=== PATIENT | male | born 1960 | race Caucasian/White ===

== ENCOUNTER 2017-01-01 18:18 | Emergency (ER) | payer MEDICAID ==
[2017-01-01 20:55] VITALS: BP 113/89
[2017-01-01] MEDS ORDERED: Ibuprofen 800 MG Tab PO ONE (21:07)
[2017-01-01] MEDS ORDERED: Sodium Chloride 0.9% 1,000 ML IV SCH (21:15)
--- NOTE | 2017-01-01 23:22 | EDM.PDOC ---
ED HPI Allergic Reaction - General Chief Complaint: Allergic Reaction Stated Complaint: TEMP Time Seen by Provider: 01/01/17 19:20 Source: Reports: Patient, Family History Limitations: Reports: No limitations - History of Present Illness INITIAL COMMENTS - FREE TEXT/NARRATIVE: Medication reaction: This is a 56-year-old male presents emergency room with his and family, reports fever of up to 103 for the past 4 days. He has been taking Tylenol and Motrin. He reports started new medication Imuran 15 days ago since that time has had intermittent nausea, diarrhea and a four-day history of fever. Past medical history includes colon resection, hernia repair x2, and rheumatoid arthritis. Primary care provider Dr. Arnold at [facility] and Dr. Contreras rheumatology [facility] Timing/Duration: Reports: Day(s): (Four) Location, Skin: Reports: generalized Severity: moderate Known identified source: possible/maybe Associated symptoms: Reports: fever/chills, loss of appetite, nausea/vomiting Similar symptoms previously: no - Related Data Allergies/ADRs: Allergies Allergy/AdvReac Type Severity Reaction Status Date / Time sulfamethoxazole Allergy Cannot Verified 01/01/17 18:44 [From Bactrim] Remember trazodone Allergy Difficulty Verified 01/01/17 18:44 Breathing trimethoprim [From Bactrim] Allergy Cannot Verified 01/01/17 18:44 Remember Home Meds: Home Meds Hydrocodone/Acetaminophen [[place] 5-325] 1 tab PO Q4H PRN 06/24/13 [History] Omeprazole [Omeprazole] 20 mg PO DAILY 06/24/13 [History] RX: Losartan [Cozaar] 50 mg PO DAILY 06/24/13 [History] Spironolactone [Aldactone] 25 mg PO DAILY 01/01/17 [History] azaTHIOprine [Imuran] 100 mg PO DAILY 01/01/17 [History] riTUXimab [Rituxan] 10 mg IV ASDIRECTED 01/01/17 [History] Past Medical History Cardiovascular History: Reports: Hypertension Gastrointestinal History: Reports: GERD, Other (see below) Other Gastrointestinal History: diverticultits Genitourinary History: Reports: Renal calculus Musculoskeletal History: Reports: RA Immunologic History: Reports: Immunosuppression - Past Surgical History GI Surgical History: Reports: Colon, Hernia repair/other Social & Family History - Tobacco Use Smoking Status *Q: Never Smoker Second Hand Smoke Exposure: No - Alcohol Use Days Per Week of Alcohol Use: 0 - Recreational Drug Use Recreational Drug Use: No - Living Situation & Occupation Living situation: Reports: (Lives [place] [facility]), with family ED ROS ALLERGIC REACTION - Review of Systems Review Of Systems: See Below Constitutional: Reports: fever, chills, malaise, fatigue, decreased appetite HEENT: Reports: No symptoms Respiratory: Reports: No Symptoms Cardiovascular: Reports: No symptoms Endocrine: Reports: fatigue, high glucose GI/Abdominal: Reports: Diarrhea, Nausea : Reports: dysuria Musculoskeletal: Reports: no symptoms Skin: Reports: no symptoms Neurological: Reports: No Symptoms Psychiatric: Reports: No symptoms Hematologic/Lymphatic: Reports: no symptoms Immunologic: Reports: no symptoms ED EXAM GENERAL NO PERIP PULSE - Physical Exam Exam: See Below Exam Limited By: No limitations General Appearance: alert, WD/WN, no apparent distress Ears: normal external exam, normal canal, hearing grossly normal, normal TMs Nose: normal inspection, normal mucosa, no blood Throat/Mouth: Normal inspection, Normal lips, Normal teeth, Normal gums, Normal oropharynx, Normal voice, No airway compromise Head: atraumatic, normocephalic Neck: normal inspection, supple, non-tender, full range of motion Respiratory/Chest: no respiratory distress, lungs clear, normal breath sounds, no accessory muscle use, chest non-tender Cardiovascular: normal peripheral pulses, regular rate, rhythm, no edema, no gallop, no JVD, no murmur, no rub GI/Abdominal: normal bowel sounds, soft, non tender, no organomegaly, no distention, no abnormal bruit, no mass (Male) Exam: Deferred Rectal (Males) Exam: Deferred Back Exam: normal inspection, full range of motion, NT Extremities: normal inspection, normal range of motion, non-tender, normal capillary refill, no pedal edema Neurological: alert, oriented, CN II-XII intact, normal cognition, normal gait, normal reflexes, no motor/sensory deficits Psychiatric: normal affect, normal mood Skin Exam: Warm, Dry, Intact, Normal color, No rash Lymphatic: no adenopathy Course - Vital Signs Last Recorded V/S: Last Vital Signs Temp 98.7 C H 01/01/17 21:34 Pulse 93 01/01/17 20:55 Resp 16 01/01/17 20:55 BP 113/89 01/01/17 20:55 Pulse Ox 96 01/01/17 20:55 - Orders/Labs/Meds Orders: Active Orders 24 hr Category Date Time Status Chest 2V [CR] Urgent Exams 01/01/17 19:40 Taken Kidney Stone Protocol [CT] Stat Exams 01/01/17 21:11 Taken LYME,BY PCR [REF] Routine Lab 01/01/17 19:54 Received Labs: Laboratory Tests 01/01/17 01/01/17 01/01/17 Range/Units 19:54 19:54 19:54 WBC 7.7 (4.5-11.0) K/uL RBC 5.08 (4.30-5.90) M/uL Hgb 14.0 D (12.0-15.0) g/dL Hct 43.4 (40.0-54.0) % MCV 85 (80-98) fL MCH 28 (27-31) pg MCHC 32 (32-36) % Plt Count 248 (150-400) K/uL Neut % (Auto) 80 H (36-66) % Lymph % (Auto) 10 L (24-44) % [place] % (Auto) 7 H (2-6) % Eos % (Auto) 3 (2-4) % Baso % (Auto) 0 (0-1) % Sodium 139 L (140-148) mmol/L Potassium 3.8 (3.6-5.2) mmol/L Chloride 103 (100-108) mmol/L Carbon Dioxide 28 (21-32) mmol/L Anion Gap 11.8 (5.0-14.0) mmol/L BUN 12 (7-18) mg/dL Creatinine 1.1 (0.8-1.3) mg/dL Est Cr Clr Drug Dosing 66.86 mL/min Estimated GFR (MDRD) > 60 (>60) Glucose 215 H (74-106) mg/dL Lactic Acid (0.4-2.0) mmol/L Calcium 7.9 L D (8.5-10.1) mg/dL Total Bilirubin 0.5 D (0.2-1.0) mg/dL AST 65 H D (15-37) U/L ALT 114 H (12-78) U/L Alkaline Phosphatase 55 (46-116) U/L Total Protein 6.9 (6.4-8.2) g/dL Albumin 3.7 (3.4-5.0) g/dL Globulin 3.2 (2.3-3.5) g/dL Albumin/Globulin Ratio 1.2 (1.2-2.2) Amylase 30 (25-115) U/L Lipase 102 (73-393) U/L Urine Color Urine Appearance Urine pH (4.5-8.0) Ur Specific [place] (1.008-1.030) Urine Protein (NEGATIVE) mg/dL Urine Glucose (UA) (NEGATIVE) mg/dL Urine Ketones (NEGATIVE) mg/dL Urine Occult Blood (NEGATIVE) Urine Nitrite (NEGAITVE) Urine Bilirubin (NEGATIVE) Urine Urobilinogen (NORMAL) mg/dL Ur Leukocyte Esterase (NEGATIVE) Urine RBC (0-5) Urine WBC (0-5) Ur Epithelial Cells Amorphous Sediment Urine Bacteria Urine Mucus 01/01/17 01/01/17 Range/Units 19:54 20:15 WBC (4.5-11.0) K/uL RBC (4.30-5.90) M/uL Hgb (12.0-15.0) g/dL Hct (40.0-54.0) % MCV (80-98) fL MCH (27-31) pg MCHC (32-36) % Plt Count (150-400) K/uL Neut % (Auto) (36-66) % Lymph % (Auto) (24-44) % [place] % (Auto) (2-6) % Eos % (Auto) (2-4) % Baso % (Auto) (0-1) % Sodium (140-148) mmol/L Potassium (3.6-5.2) mmol/L Chloride (100-108) mmol/L Carbon Dioxide (21-32) mmol/L Anion Gap (5.0-14.0) mmol/L BUN (7-18) mg/dL Creatinine (0.8-1.3) mg/dL Est Cr Clr Drug Dosing mL/min Estimated GFR (MDRD) (>60) Glucose (74-106) mg/dL Lactic Acid 1.2 (0.4-2.0) mmol/L Calcium (8.5-10.1) mg/dL Total Bilirubin (0.2-1.0) mg/dL AST (15-37) U/L ALT (12-78) U/L Alkaline Phosphatase (46-116) U/L Total Protein (6.4-8.2) g/dL Albumin (3.4-5.0) g/dL Globulin (2.3-3.5) g/dL Albumin/Globulin Ratio (1.2-2.2) Amylase (25-115) U/L Lipase (73-393) U/L Urine Color Yellow Urine Appearance Slightly cloudy Urine pH 6.0 (4.5-8.0) Ur Specific [place] 1.015 (1.008-1.030) Urine Protein Negative (NEGATIVE) mg/dL Urine Glucose (UA) Normal (NEGATIVE) mg/dL Urine Ketones Negative (NEGATIVE) mg/dL Urine Occult Blood Large (NEGATIVE) Urine Nitrite Negative (NEGAITVE) Urine Bilirubin Negative (NEGATIVE) Urine Urobilinogen Normal (NORMAL) mg/dL Ur Leukocyte Esterase Negative (NEGATIVE) Urine RBC 0-5 (0-5) Urine WBC Not seen (0-5) Ur Epithelial Cells Not seen Amorphous Sediment Rare Urine Bacteria Not seen Urine Mucus Not seen Meds: Medications Discontinued Medications Generic Name Dose Route Start Last Admin Trade Name Freq PRN Reason Stop Dose Admin Sodium Chloride 1,000 mls @ 500 mls/hr 01/01/17 21:15 01/01/17 21:35 Normal Saline IV 500 mls/hr ASDIRECTED KATHERINE Administration Ibuprofen 800 mg 01/01/17 21:07 01/01/17 21:34 Motrin PO 01/01/17 21:08 800 mg ONETIME ONE Administration - Re-Assessments/Exams Free Text/Narrative Re-Assessment/Exam: CT scan of abdomen and pelvis without oral IV contrast Impression -A few very small bilateral renal calculi -Posttreatment changes of anterior and, normal and pelvic wall hernia repair with diffuse mesh was 3.3 cm recurrent hernia in the lower anterior abdomen and upper anterior pelvic wall containing fat and a nondilated small bowel loop. -Diffuse fatty infiltration of liver -Postsurgical changes sigmoid colon Patient and reviewed report, given copy of CT and written report. 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 -Return to urgent care or ER if has increased pain, fever, chills, nausea, vomiting, rash or not improved Bilateral kidney stones -Push fluids -Calcium citrate 1000 mg by mouth daily -Followup with urology for further evaluation and recommendations of care -Return to emergency room for any increased pain, fever, chills painful urination or any concerns Recurrent hernia -Advised to followup with primary care for referral to surgeon -Return to emergency room for any abdominal pain, nausea, vomiting, rash or any concerns Fatty infiltration of liver -Followup with primary care for recommendations for further care - Problem List & Annotations (1) Adverse reaction to drug SNOMED Code(s): 52862061 Code(s): T88.7XXA - UNSP ADVERSE EFFECT OF DRUG OR MEDICAMENT, INIT ENCNTR Status: Acute Priority: High (2) Bilateral kidney stones SNOMED Code(s): 53366316 Code(s): N20.0 - CALCULUS OF KIDNEY Status: Acute Priority: High (3) Fatty infiltration of liver SNOMED Code(s): 343252991 Code(s): K76.0 - FATTY (CHANGE OF) LIVER, NOT ELSEWHERE CLASSIFIED Status: Acute Priority: Medium (4) Recurrent hernia SNOMED Code(s): 10887579, 051525557, 853400897 Code(s): K46.9 - UNSPECIFIED ABDOMINAL HERNIA WITHOUT OBSTRUCTION OR GANGRENE Status: Acute Priority: High - Problem List Review Problem List Initiated/Reviewed/Updated: Yes - My Orders Last 24 Hours: My Active Orders 01/01/17 19:40 Chest 2V [CR] Urgent 01/01/17 19:54 LYME,BY PCR [REF] Routine 01/01/17 21:11 Kidney Stone Protocol [CT] Stat - Assessment/Plan Last 24 Hours: My Active Orders 01/01/17 19:40 Chest 2V [CR] Urgent 01/01/17 19:54 LYME,BY PCR [REF] Routine 01/01/17 21:11 Kidney Stone Protocol [CT] Stat Plan: Adverse reaction to drug -Advised to stop Imuran immediately -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 -Return to urgent care or ER if has increased pain, fever, chills, nausea, vomiting, rash or not improved Bilateral kidney stones -Push fluids -Calcium citrate 1000 mg by mouth daily -Followup with urology for further evaluation and recommendations of care -Return to emergency room for any increased pain, fever, chills painful urination or any concerns Recurrent hernia -Advised to followup with primary care for referral to surgeon -Return to emergency room for any abdominal pain, nausea, vomiting, rash or any concerns Fatty infiltration of liver -Followup with primary care for recommendations for further care
--- NOTE | 2017-01-03 09:08 | CR ---
Chest 2V HISTORY: Fever FINDINGS: The heart and vascular structures are normal in appearance. No infiltrates or effusions ar e demonstrated. The skeletal structures are unremarkable. IMPRESSION: Negative exam.
== END 2017-01-01 23:33 | disposition home or self-care (01) ==
LOC: JP.ED 18:18
DX: R11.2 Nausea with vomiting, unspecified (principal); R19.7 Diarrhea, unspecified; T45.1X5A Adverse effect of antineoplastic and immunosuppressive drugs, initial encounter; K46.9 Unspecified abdominal hernia without obstruction or gangrene; K76.0 Fatty (change of) liver, not elsewhere classified; N20.0 Calculus of kidney; I10 Essential (primary) hypertension; K21.9 Gastro-esophageal reflux disease without esophagitis; M06.9 Rheumatoid arthritis, unspecified; Z79.899 Other long term (current) drug therapy; Z88.8 Allergy status to other drugs, medicaments and biological substances
CPT/HCPCS: 36415; 71020; 74176; 80053; 81001; 82150; 83605; 83690; 85025; 87476; 96360; 96361; 99284; A9270; J7040

== ENCOUNTER 2019-01-05 06:12 | Day surgery (SDC) | payer MEDICAID ==
[~2019-01-05 06:12] MED LIST: Dextrose 5%-Lactated Ringers 1,000 ML IV SCH
[2019-01-05] MEDS ORDERED: Propofol 200 MG/20 ML SDV ONE (06:50)
[2019-01-05] MEDS ORDERED: fentaNYL 100 MCG/2 ML SDV ONE (06:50)
[2019-01-05] MEDS ORDERED: Midazolam 1 MG/ML 2 ML SDV ONE (06:50)
[2019-01-05 08:31] VITALS: BP 153/90
--- NOTE | 2019-01-07 17:16 | OR ---
DATE OF PROCEDURE: 01/05/2019 PREOPERATIVE DIAGNOSIS: Indications for screening colonoscopy. POSTOPERATIVE DIAGNOSIS: Uncomplicated left colonic diverticulosis. OPERATIVE PROCEDURE: Flexible colonoscopy. ANESTHESIA: IV sedation. INDICATION FOR PROCEDURE: This is a 58-year-old presenting for a screening colonoscopy. The plan is to proceed with colonoscopy with polypectomy and/or biopsies as indicated. Potential risks of the procedure including bleeding and perforation were discussed, and the patient wishes to proceed. DETAILS OF PROCEDURE: The patient was taken to the operating room and placed in a left lateral decubitus position. IV sedation was administered, after which the initial digital rectal exam was performed and was unremarkable. Colonoscope was then passed into the rectum with retroflexion revealing uncomplicated hemorrhoidal columns. The scope was eventually passed to the cecum. The patient is status post sigmoid colon resection for diverticular disease previously. The area of the anastomosis was identified. The patient did have somewhat uncomplicated diverticulosis above that anastomosis and the remaining descending colon. Otherwise, there were no polyps or other signs of neoplasia and no areas of colitis. The scope was then withdrawn, the above findings were reconfirmed, and the procedure was then concluded. There were no evident complications. The patient was taken to the recovery room in satisfactory condition. The recommendations would be to repeat the colonoscopy in 10 years unless signs or symptoms indicate need for earlier exam. Sagar Jackson MD /[id number]
== END 2019-01-05 08:40 | disposition home or self-care (01) ==
LOC: JP.SDS 06:12
PROVIDERS: ATTEND Surgery
DX: Z12.11 Encounter for screening for malignant neoplasm of colon (principal); K57.30 Diverticulosis of large intestine without perforation or abscess without bleeding; K64.9 Unspecified hemorrhoids; K21.9 Gastro-esophageal reflux disease without esophagitis; I10 Essential (primary) hypertension; E11.9 Type 2 diabetes mellitus without complications; E87.6 Hypokalemia; Z90.49 Acquired absence of other specified parts of digestive tract
CPT/HCPCS: J2250; J2704; J3010; J7042

== ENCOUNTER 2021-04-22 19:46 | Inpatient (IN) | payer MEDICAID ==
[2021-04-22] MEDS ORDERED: HYDROmorphone 1 MG/ML Syringe IM ONE (20:28)
[2021-04-22] MEDS ORDERED: Ondansetron 4 MG/2 ML SDV IVPUSH ONE (20:29)
[2021-04-22] MEDS ORDERED: Sodium Chloride 0.9% 1,000 ML IV SCH (20:30)
[2021-04-22] MEDS ORDERED: HYDROmorphone 1 MG/ML Syringe ONE (20:30)
--- NOTE | 2021-04-22 21:09 | CRLCT ---
For Patients: As a result of the Century Cures Act, medical imaging exams and procedure reports are released immediately into your electronic medical record. You may view this report before your referring provider. If you have questions, please contact your health care provider. INDICATION: Pain at umbilical hernia TECHNIQUE: CT abdomen and pelvis without contrast. COMPARISON: None FINDINGS: Lower chest: Unremarkable. Liver: Unremarkable. Spleen: Unremarkable. Pancreas: Unremarkable. Gallbladder and bile ducts: Unremarkable. Adrenal glands: Unremarkable. Kidneys: Bilateral nonobstructive nephrolithiasis. GI tract: Status post ventral hernia with recurrent umbilical hernia. The hernia sac contains a loop of small bowel and a small amount of fluid. No bowel wall thickening or pneumatosis within the bowel loop in the hernia sac. The neck of the hernia measures 4.1 cm. There is proximal small bowel dilatation measuring up to 3.9 cm. Bowel distal to the hernia sac is decompressed. Surgical suture at the mid sigmoid colon. Colonic diverticulosis. Vascular structures: Unremarkable. Lymph nodes: Unremarkable. Miscellaneous: Unremarkable. No free air or significant free fluid. Pelvic Organs: Unremarkable. Bones: Mixed density 1.7 x 1.7 cm lesion in the left sacrum. 5 mm round sclerotic density in the right ilium. IMPRESSION: Small-bowel obstruction secondary to incarcerated loop of small bowel in a recurrent umbilical hernia. No CT evidence for bowel wall thickening, pneumatosis, or free air. Mixed density lesion in the left sacrum and tiny sclerotic density in the right ilium. Recommend comparison with prior CT images. Colonic diverticulosis. Bilateral nonobstructive nephrolithiasis. S/p sigmoid colon surgery. Please note that all CT scans at this facility use dose modulation, iterative reconstruction, and/or weight-based dosing when appropriate to reduce radiation dose to as low as reasonably achievable. Dictated by Ila Jorgensen MD @ 04/22/2021 9:07:[address] Ila Jorgensen @ Apr 22 2021 9:07PM
[2021-04-22] MEDS ORDERED: LORazepam 2 MG/ML SDV IVPUSH ONE (21:27)
[2021-04-22] MEDS ORDERED: Ondansetron 4 MG/2 ML SDV IVPUSH PRN (21:28)
[2021-04-22] MEDS ORDERED: HYDROmorphone 1 MG/ML Syringe IVPUSH PRN (21:28)
[2021-04-22] MEDS ORDERED: Lactated Ringers 1,000 ML IV SCH (21:30)
[2021-04-22] MEDS: Meropenem 500 MG in Sodium Chloride 0.9% 50 ML IV SCH (22:16)
--- NOTE | 2021-04-22 23:16 | EDM.PDOC ---
ED HPI GENERAL MEDICAL PROBLEM - General Chief Complaint: Abdominal Pain Stated Complaint: HERNIA Time Seen by Provider: 04/22/21 20:29 Source of Information: Reports: Patient, Family (), RN History Limitations: Reports: No Limitations - History of Present Illness INITIAL COMMENTS - FREE TEXT/NARRATIVE: chief complaint: hernia- acute abdominal pain This is a 60 year old male presents to the ER with Ila with acute abdominal pain. reports has had a umbilical hernia for 5 years and has always been able to self reduce it. This morning woke up in pain, was able to do his day work but pain persisted, this evening at 530pm tried to eat prime rib, veggies and 2 beers, then he had unbearable pain. nausea, vomiting, fever, chills, and sweats from the pain. Surgical: reports Hernia surgery x2 with mesh, colon resection for diverticulitis Surgeon: Dr. Jackson Onset: Sudden Onset Date: 04/22/21 Onset Time: 08:00 Duration: Getting Worse (1730 unbearable abdominal pain) Location: Reports: Abdomen (acute, umbilical hernia) Quality: Reports: Sharp, Stabbing, Throbbing Severity: Severe (rates pain 10/10) Improves with: Reports: None Worsens with: Reports: None Associated Symptoms: Reports: Fever/Chills, Loss of Appetite, Nausea/Vomiting, Weakness abd Pain Score (Numeric/FACES): 5 - Related Data Allergies Allergy/AdvReac Type Severity Reaction Status Date / Time sulfamethoxazole Allergy Cannot Verified 04/22/21 20:00 [From Bactrim] Remember trazodone Allergy Difficulty Verified 04/22/21 20:00 Breathing trimethoprim [From Bactrim] Allergy Cannot Verified 04/22/21 20:00 Remember Home Meds: Home Meds Losartan [Cozaar] 50 mg PO DAILY 06/24/13 [History] Omeprazole 20 mg PO BEDTIME 06/24/13 [History] Spironolactone [Aldactone] 25 mg PO DAILY 01/01/17 [History] Tofacitinib Citrate [Xeljanz] 5 mg PO BID 01/05/19 [History] Melatonin 5 mg PO BEDTIME 04/22/21 [History] Past Medical History HEENT History: Reports: None Cardiovascular History: Reports: Heart Murmur, Hypertension Respiratory History: Reports: Sleep Apnea Gastrointestinal History: Reports: GERD, Other (See Below) Other Gastrointestinal History: diverticultits Genitourinary History: Reports: Renal Calculus Musculoskeletal History: Reports: RA Neurological History: Reports: MS Endocrine/Metabolic History: Reports: Diabetes, Type II Immunologic History: Reports: Immunosuppression Dermatologic History: Reports: Other (See Below) Other Dermatologic History: roseatia - Infectious Disease History Infectious Disease History: Reports: C-Difficile, Chicken Pox - Past Surgical History Head Surgeries/Procedures: Reports: None HEENT Surgical History: Reports: Other (See Below) Other HEENT Surgeries/Procedures: 2 cornea transplants Cardiovascular Surgical History: Reports: None GI Surgical History: Reports: Colon, Colonoscopy, EGD, Hernia Repair/Other, Other (See Below) Other GI Surgeries/Procedures: colon resection Male Surgical History: Reports: Lithotripsy ([facility]) Endocrine Surgical History: Reports: None Neurological Surgical History: Reports: None Musculoskeletal Surgical History: Reports: None Social & Family History - Family History Family Medical History: No Pertinent Family History - Tobacco Use Tobacco Use Status *Q: Never Tobacco User - Caffeine Use Caffeine Use: Reports: Energy Drinks, Soda, Tea - Recreational Drug Use Recreational Drug Use: No - Living Situation & Occupation Living situation: Reports: , with Family (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[employer] [place], lives with Ila and 2 children age 18 yrs and 16 yrs.) ED ROS GENERAL - Review of Systems Review Of Systems: See Below Constitutional: Reports: Fever, Chills, Malaise, Weakness, Decreased Appetite, Other (acute abdominal pain) HEENT: Reports: No Symptoms, Glasses, Other (natural teeth.) Respiratory: Reports: No Symptoms Cardiovascular: Reports: No Symptoms Endocrine: Reports: Other (diabetes type 2- diet controlled) GI/Abdominal: Reports: Abdominal Pain, Decreased Appetite, Distension, Nausea, Vomiting : Reports: Other (report history of kidney stones) Musculoskeletal: Reports: Back Pain Skin: Reports: No Symptoms Neurological: Reports: No Symptoms Psychiatric: Reports: No Symptoms Hematologic/Lymphatic: Reports: No Symptoms Immunologic: Reports: No Symptoms ED EXAM, GI/ABD - Physical Exam Exam: See Below Exam Limited By: Other (acute pain, Mr. Leon is curled up in position, diaphorectic, pallor, moaning) General Appearance: Alert, Severe Distress, Obese Eyes: Bilateral: Normal Appearance Ears: Normal External Exam, Normal Canal, Hearing Grossly Normal, Normal TMs Nose: Normal Inspection, Normal Mucosa, No Blood Throat/Mouth: Normal Inspection, Normal Lips, Normal Teeth, Normal Gums, Normal Oropharynx, Normal Voice, No Airway Compromise Head: Atraumatic, Normocephalic Neck: Normal Inspection, Supple, Non-Tender, Full Range of Motion Respiratory/Chest: No Respiratory Distress, Lungs Clear, Normal Breath Sounds, No Accessory Muscle Use, Chest Non-Tender Cardiovascular: Normal Peripheral Pulses, Regular Rate, Rhythm, No Edema, No Gallop, No JVD, No Murmur, No Rub GI/Abdominal Exam: Distended, Guarding, Rigid, Abnormal Bowel Sounds (no bowel sounds noted), Other (umbilical hernia noted, abdomen is bulging, hard, extreme pain to light tough, pink in color) (Male) Exam: Deferred Rectal (Males) Exam: Deferred Back Exam: Normal Inspection, Full Range of Motion Extremities: Normal Inspection, Normal Range of Motion, Non-Tender, Normal Capillary Refill, No Pedal Edema Neurological: Alert, Oriented, CN II-XII Intact, Normal Cognition, Normal Gait, Normal Reflexes, No Motor/Sensory Deficits Psychiatric: Normal Affect, Normal Mood Skin Exam: Warm, Dry, Intact, No Rash, Pallor Lymphatic: No Adenopathy Course - Vital Signs Last Recorded V/S: Last Vital Signs Temp 97.2 F 04/22/21 19:58 Pulse 74 04/22/21 22:35 Resp 20 04/22/21 20:10 BP 127/77 04/22/21 22:35 Pulse Ox 95 04/22/21 22:35 - Orders/Labs/Meds Orders: Active Orders 24 hr Category Date Time Status Vital Signs [RC] Q1H Care 04/22/21 20:25 Active CULTURE BLOOD [BC] Urgent Lab 04/22/21 20:45 Received CULTURE BLOOD [BC] Urgent Lab 04/22/21 20:50 Received UA W/MICROSCOPIC [URIN] Urgent Lab 04/22/21 20:24 Ordered Sodium Chloride 0.9% [Normal Saline] 1,000 ml Med 04/22/21 20:30 Active IV ASDIRECTED Blood Culture x2 Reflex Set [OM.PC] Urgent Oth 04/22/21 20:25 Ordered Medication Orders Hydromorphone HCl (Hydromorphone 1 Mg/Ml Syringe) 1 mg IVPUSH Q2H PRN PRN Reason: Pain Sodium Chloride (Normal Saline) 1,000 mls @ 999 mls/hr IV ASDIRECTED [facility] Last Admin: 04/22/21 20:37 Dose: 999 mls/hr Documented by: MAR Lactated Ringer's (Ringers, Lactated) 1,000 mls @ 125 mls/hr IV ASDIRECTED [facility] Last Admin: 04/22/21 22:01 Dose: 125 mls/hr Documented by: MAR Meropenem 500 mg/ Sodium (Chloride) 50 mls @ 100 mls/hr IV Q8H KATHERINE Last Admin: 04/22/21 22:16 Dose: 100 mls/hr Documented by: MAR Losartan Potassium (Losartan 50 Mg Tab) 50 mg PO DAILY KATHERINE Non-Formulary Medication (Melatonin [Melatonin]) 5 mg PO BEDTIME KATHERINE Non-Formulary Medication (Tofacitinib Citrate [Xeljanz]) 5 mg PO BID KATHERINE Ondansetron HCl (Ondansetron 4 Mg/2 Ml Sdv) 4 mg IVPUSH Q4H PRN PRN Reason: Nausea/Vomiting Pantoprazole Sodium (Pantoprazole 40 Mg Tab.Cr) 40 mg PO BEDTIME KATHERINE Spironolactone (Spironolactone 25 Mg Tab) 25 mg PO DAILY [facility] Labs: Laboratory Tests 04/22/21 04/22/21 04/22/21 Range/Units 20:45 20:45 20:45 WBC 11.6 H (4.5-11.0) K/uL RBC 5.33 (4.30-5.90) M/uL Hgb 15.0 (12.0-15.0) g/dL Hct 45.0 (40.0-54.0) % MCV 84 (80-98) fL MCH 28 (27-31) pg MCHC 33 (32-36) % Plt Count 351 (150-400) K/uL Neut % (Auto) 78.8 H (36-66) % Lymph % (Auto) 12.6 L (24-44) % [place] % (Auto) 7.3 H (2-6) % Eos % (Auto) 1.0 L (2-4) % Baso % (Auto) 0.3 (0-1) % Sodium 142 (140-148) mmol/L Potassium 3.8 (3.6-5.2) mmol/L Chloride 100 (100-108) mmol/L Carbon Dioxide 26 (21-32) mmol/L Anion Gap 15.6 H (5.0-14.0) mmol/L BUN 20 H D (7-18) mg/dL Creatinine 1.0 (0.8-1.3) mg/dL Est Cr Clr Drug Dosing 72.53 mL/min Estimated GFR (MDRD) > 60 (>60) Glucose 154 H (74-106) mg/dL Lactic Acid 1.4 (0.4-2.0) mmol/L Calcium 9.5 D (8.5-10.1) mg/dL Total Bilirubin 0.6 (0.2-1.0) mg/dL AST 21 (15-37) U/L ALT 50 (12-78) U/L Alkaline Phosphatase 56 (46-116) U/L C-Reactive Protein < 0.05 (0.0-0.3) mg/dL Total Protein 7.6 (6.4-8.2) g/dL Albumin 4.7 (3.4-5.0) g/dL Globulin 2.9 (2.3-3.5) g/dL Albumin/Globulin Ratio 1.6 (1.2-2.2) Meds: Medications Generic Name Dose Route Start Last Admin Trade Name Freq PRN Reason Stop Dose Admin Hydromorphone HCl 1 mg 04/22/21 21:28 Hydromorphone 1 Mg/Ml Syringe IVPUSH Q2H PRN Pain Sodium Chloride 1,000 mls @ 999 mls/hr 04/22/21 20:30 04/22/21 20:37 Normal Saline IV 999 mls/hr ASDIRECTED KATHERINE Administration Lactated Ringer's 1,000 mls @ 125 mls/hr 04/22/21 21:30 04/22/21 22:01 Ringers, Lactated IV 125 mls/hr ASDIRECTED KATHERINE Administration Meropenem 500 mg/ Sodium 50 mls @ 100 mls/hr 04/22/21 21:30 04/22/21 22:16 Chloride IV 100 mls/hr Q8H KATHERINE Administration Losartan Potassium 50 mg 04/23/21 09:00 Losartan 50 Mg Tab PO DAILY KATHERINE Non-Formulary Medication 5 mg 04/23/21 21:00 Melatonin [Melatonin] PO BEDTIME KATHERINE Non-Formulary Medication 5 mg 04/23/21 09:00 Tofacitinib Citrate [Xeljanz] PO BID KATHERINE Ondansetron HCl 4 mg 04/22/21 21:28 Ondansetron 4 Mg/2 Ml Sdv IVPUSH Q4H PRN Nausea/Vomiting Pantoprazole Sodium 40 mg 04/23/21 21:00 Pantoprazole 40 Mg Tab.Cr PO BEDTIME KATHERINE Spironolactone 25 mg 04/23/21 09:00 Spironolactone 25 Mg Tab PO DAILY KATHERINE Discontinued Medications Generic Name Dose Route Start Last Admin Trade Name Freq PRN Reason Stop Dose Admin Hydromorphone HCl 1 mg 04/22/21 20:28 04/22/21 20:34 Hydromorphone 1 Mg/Ml Syringe IM 04/22/21 20:29 1 mg ONETIME ONE Administration Hydromorphone HCl Confirm 04/22/21 20:30 04/22/21 20:34 Hydromorphone 1 Mg/Ml Syringe Administered 04/22/21 20:31 Not Given Dose 1 mg .ROUTE .STK-MED ONE Lorazepam 1 mg 04/22/21 21:27 04/22/21 21:38 Lorazepam 2 Mg/Ml Sdv IVPUSH 04/22/21 21:28 1 mg ONETIME ONE Administration Ondansetron HCl 4 mg 04/22/21 20:29 04/22/21 20:38 Ondansetron 4 Mg/2 Ml Sdv IVPUSH 04/22/21 20:30 4 mg ONETIME ONE Administration - Re-Assessments/Exams Free Text/Narrative Re-Assessment/Exam: 04/22/21 20:26 CT scan of abdomen-pelvis without contrast IV fluids medicate for pain and nausea labs to rule out sepsis will consult with Surgery net developer contract Mr. and Mrs. Leon agree with plan of care. 2106 CT report Abdomen-pelvis Impression- -small-bowel obstruction secondary to incarcerated loop of small bowel in recurrent umbilical hernia. no CT evidence for bowel wall thickening, pneumatosis or free air. -mixed density lesion in the left sacrum and tiny sclerotic density in the right ilium . recommend comparison with prior ct images. -colonic diverticulosis -bilateral nonobstructive nephrolithiasis -s/p sigmoid colon surgery consult with Dr. Sagar Jackson, Surgeon, [facility], admission and orders for care given to ER Medical Doctor -will admit, orders given for care, surgery in am -reviewed CT report and plan of care with and Mrs. Leon agree with plan of care Departure - Departure Time of Disposition: 23:38 Disposition: Admitted As Inpatient 65 Condition: Good Clinical Impression: Small bowel obstruction, Umbilical hernia, incarcerated - Discharge Information *PRESCRIPTION DRUG MONITORING PROGRAM REVIEWED*: Not Applicable *COPY OF PRESCRIPTION DRUG MONITORING REPORT IN PATIENT STEPHANIE: Not Applicable Sepsis Event Note (ED) - Focused Exam Vital Signs: Vital Signs Temp Pulse Resp BP Pulse Ox 04/22/21 20:25 69 194/89 H 97 04/22/21 20:10 66 20 183/87 H 100 04/22/21 19:58 97.2 F 74 18 183/87 H 97 - Problem List & Annotations (1) Umbilical hernia, incarcerated SNOMED Code(s): 916638530 Code(s): K42.0 - UMBILICAL HERNIA WITH OBSTRUCTION, WITHOUT GANGRENE Status: Acute Priority: High Current Visit: Yes (2) Small bowel obstruction SNOMED Code(s): 665293464 Code(s): K56.609 - UNSP INTESTNL OBST, UNSP TO PARTIAL VERSUS COMPLETE OBST Status: Acute Priority: High Current Visit: Yes - Problem List Review Problem List Initiated/Reviewed/Updated: Yes - My Orders Last 24 Hours: My Active Orders 04/22/21 20:24 UA W/MICROSCOPIC [URIN] Urgent 04/22/21 20:25 Vital Signs [RC] Q1H Blood Culture x2 Reflex Set [OM.PC] Urgent 04/22/21 20:30 Sodium Chloride 0.9% [Normal Saline] 1,000 ml IV ASDIRECTED 04/22/21 20:45 CULTURE BLOOD [BC] Urgent 04/22/21 20:50 CULTURE BLOOD [BC] Urgent - Assessment/Plan Last 24 Hours: My Active Orders 04/22/21 20:24 UA W/MICROSCOPIC [URIN] Urgent 04/22/21 20:25 Vital Signs [RC] Q1H Blood Culture x2 Reflex Set [OM.PC] Urgent 04/22/21 20:30 Sodium Chloride 0.9% [Normal Saline] 1,000 ml IV ASDIRECTED 04/22/21 20:45 CULTURE BLOOD [BC] Urgent 04/22/21 20:50 CULTURE BLOOD [BC] Urgent Plan: admit to Surgery Service
[2021-04-22] MEDS ORDERED: Melatonin 3 MG Tab PO SCH (23:35)
[2021-04-23 03:54] VITALS: PULSE 79
[2021-04-23] MEDS: Meropenem 500 MG in Sodium Chloride 0.9% 50 ML IV SCH (05:53)
--- NOTE | 2021-04-23 08:09 | PCM.DCSUM1 ---
Discharge Summary - Hospital Course Free Text/Narrative:: Vini has had an icisional umbilical hernia for several years and yesterday it became incarcerated and he was not able to reduce it. Due to increase pain he presented to the ED and was admitted. After his CT Scan the hernia reduced itself and he is feeling better today. - Discharge Data Discharge Date: 04/23/21 Discharge Disposition: Home, Self-Care 01 Condition: Good - Referral to Home Health Primary Care Physician: PCP None - Patient Summary/Data Planned Operative Procedure(s) after DC: Scheduled: Open Repair of Incisional Umbilical Hernia with Mesh - General Anesthesia - 05/05/2021 -. Sagar Jackson MD. NPO after MN - Patient Instructions Diet, Other: Full liquid diet for 5 days then gradually progress diet as tolerated Activity: As Tolerated, No Lifting Over 10 Pounds Driving: May Drive Today Showering/Bathing: May Shower Notify Provider of: Fever, Increased Pain, Nausea and/or Vomiting Other/Special Instructions: Scheduled for Surgery on 05/05/2021. Pre Op Physical will be required by your primary care doctor. If any increase in pain or you can't reduce hernia call [facility] at [phone] or the hospital after clinic hours and ask to speak to Dr. Jackson or Amanda - Discharge Plan *PRESCRIPTION DRUG MONITORING PROGRAM REVIEWED*: Not Applicable *COPY OF PRESCRIPTION DRUG MONITORING REPORT IN PATIENT STEPHANIE: Not Applicable Home Medications: Home Meds Losartan [Cozaar] 50 mg PO DAILY 06/24/13 [History] Omeprazole 20 mg PO BEDTIME 06/24/13 [History] Spironolactone [Aldactone] 25 mg PO DAILY 01/01/17 [History] Tofacitinib Citrate [Xeljanz] 5 mg PO BID 01/05/19 [History] Melatonin 5 mg PO BEDTIME 04/22/21 [History] - Discharge Summary/Plan Comment DC Time >30 min.: No Total # of Minutes for Discharge Time: 20 minutes Discharge Summary/Plan Comment: Plan: To follow up prn or for surgery. - General Info Date of Service: 04/23/21 Functional Status: Reports: Tolerating Diet, Ambulating - Review of Systems General: Reports: No Symptoms HEENT: Reports: No Symptoms Pulmonary: Reports: No Symptoms Cardiovascular: Reports: No Symptoms Gastrointestinal: Reports: No Symptoms Genitourinary: Reports: No Symptoms Musculoskeletal: Reports: No Symptoms Skin: Reports: No Symptoms Neurological: Reports: No Symptoms Psychiatric: Reports: No Symptoms - Patient Data Vitals - Most Recent: Last Vital Signs Temp 98.9 F 04/23/21 03:53 Pulse 79 04/23/21 03:53 Resp 16 04/23/21 03:53 BP 135/69 04/23/21 03:53 Pulse Ox 92 L 04/23/21 03:53 Weight - Most Recent: 240 lb 8.389 oz I&O - Last 24 hours: Intake & Output 04/22/21 04/23/21 04/23/21 22:59 06:59 14:59 Intake Total 854 Output Total 700 Balance 154 Lab Results - Last 24 hrs: Laboratory Results - last 24 hr 04/22/21 04/22/21 04/22/21 Range/Units 20:45 20:45 20:45 WBC 11.6 H (4.5-11.0) K/uL RBC 5.33 (4.30-5.90) M/uL Hgb 15.0 (12.0-15.0) g/dL Hct 45.0 (40.0-54.0) % MCV 84 (80-98) fL MCH 28 (27-31) pg MCHC 33 (32-36) % Plt Count 351 (150-400) K/uL Neut % (Auto) 78.8 H (36-66) % Lymph % (Auto) 12.6 L (24-44) % [place] % (Auto) 7.3 H (2-6) % Eos % (Auto) 1.0 L (2-4) % Baso % (Auto) 0.3 (0-1) % Sodium 142 (140-148) mmol/L Potassium 3.8 (3.6-5.2) mmol/L Chloride 100 (100-108) mmol/L Carbon Dioxide 26 (21-32) mmol/L Anion Gap 15.6 H (5.0-14.0) mmol/L BUN 20 H D (7-18) mg/dL Creatinine 1.0 (0.8-1.3) mg/dL Est Cr Clr Drug Dosing 72.53 mL/min Estimated GFR (MDRD) > 60 (>60) Glucose 154 H (74-106) mg/dL Lactic Acid 1.4 (0.4-2.0) mmol/L Calcium 9.5 D (8.5-10.1) mg/dL Total Bilirubin 0.6 (0.2-1.0) mg/dL AST 21 (15-37) U/L ALT 50 (12-78) U/L Alkaline Phosphatase 56 (46-116) U/L C-Reactive Protein < 0.05 (0.0-0.3) mg/dL Total Protein 7.6 (6.4-8.2) g/dL Albumin 4.7 (3.4-5.0) g/dL Globulin 2.9 (2.3-3.5) g/dL Albumin/Globulin Ratio 1.6 (1.2-2.2) Urine Color (YELLOW) Urine Appearance (CLEAR) Urine pH (5.0-8.0) Ur Specific [place] (1.008-1.030) Urine Protein (NEGATIVE) mg/dL Urine Glucose (UA) (NEGATIVE) mg/dL Urine Ketones (NEGATIVE) mg/dL Urine Occult Blood (NEGATIVE) Urine Nitrite (NEGATIVE) Urine Bilirubin (NEGATIVE) Urine Urobilinogen (0.2-1.0) EU/dL Ur Leukocyte Esterase (NEGATIVE) Urine RBC (0-5) Urine WBC (0-5) Ur Epithelial Cells Amorphous Sediment Urine Bacteria Urine Mucus 04/23/21 Range/Units 00:53 WBC (4.5-11.0) K/uL RBC (4.30-5.90) M/uL Hgb (12.0-15.0) g/dL Hct (40.0-54.0) % MCV (80-98) fL MCH (27-31) pg MCHC (32-36) % Plt Count (150-400) K/uL Neut % (Auto) (36-66) % Lymph % (Auto) (24-44) % [place] % (Auto) (2-6) % Eos % (Auto) (2-4) % Baso % (Auto) (0-1) % Sodium (140-148) mmol/L Potassium (3.6-5.2) mmol/L Chloride (100-108) mmol/L Carbon Dioxide (21-32) mmol/L Anion Gap (5.0-14.0) mmol/L BUN (7-18) mg/dL Creatinine (0.8-1.3) mg/dL Est Cr Clr Drug Dosing mL/min Estimated GFR (MDRD) (>60) Glucose (74-106) mg/dL Lactic Acid (0.4-2.0) mmol/L Calcium (8.5-10.1) mg/dL Total Bilirubin (0.2-1.0) mg/dL AST (15-37) U/L ALT (12-78) U/L Alkaline Phosphatase (46-116) U/L C-Reactive Protein (0.0-0.3) mg/dL Total Protein (6.4-8.2) g/dL Albumin (3.4-5.0) g/dL Globulin (2.3-3.5) g/dL Albumin/Globulin Ratio (1.2-2.2) Urine Color Yellow (YELLOW) Urine Appearance Clear (CLEAR) Urine pH 7.0 (5.0-8.0) Ur Specific [place] >= 1.030 (1.008-1.030) Urine Protein Negative (NEGATIVE) mg/dL Urine Glucose (UA) Negative (NEGATIVE) mg/dL Urine Ketones 80 H (NEGATIVE) mg/dL Urine Occult Blood Trace-intact H (NEGATIVE) Urine Nitrite Negative (NEGATIVE) Urine Bilirubin Negative (NEGATIVE) Urine Urobilinogen 1.0 (0.2-1.0) EU/dL Ur Leukocyte Esterase Negative (NEGATIVE) Urine RBC 5-10 H (0-5) Urine WBC 0-5 (0-5) Ur Epithelial Cells Rare Amorphous Sediment Not seen Urine Bacteria Not seen Urine Mucus Not seen Med Orders - Current: Current Medications Hydromorphone HCl (Hydromorphone 1 Mg/Ml Syringe) 1 mg IVPUSH Q2H PRN PRN Reason: Pain Last Admin: 04/23/21 01:10 Dose: 1 mg Documented by: Lactated Ringer's (Ringers, Lactated) 1,000 mls @ 125 mls/hr IV ASDIRECTED KATHERINE Last Admin: 04/22/21 22:01 Dose: 125 mls/hr Documented by: Meropenem 500 mg/ Sodium (Chloride) 50 mls @ 100 mls/hr IV Q8HR [facility] Losartan Potassium (Losartan 50 Mg Tab) 50 mg PO DAILY [facility] Melatonin (Melatonin 3 Mg Tab) 6 mg PO BEDTIME KATHERINE Last Admin: 04/23/21 01:26 Dose: Not Given Documented by: Non-Formulary Medication (Tofacitinib Citrate [Xeljanz]) 5 mg PO BID KATHERINE Ondansetron HCl (Ondansetron 4 Mg/2 Ml Sdv) 4 mg IVPUSH Q4H PRN PRN Reason: Nausea/Vomiting Last Admin: 04/23/21 00:10 Dose: 4 mg Documented by: Pantoprazole Sodium (Pantoprazole 40 Mg Tab.Cr) 40 mg PO BEDTIME KATHERINE Spironolactone (Spironolactone 25 Mg Tab) 25 mg PO DAILY KATHERINE Discontinued Medications Hydromorphone HCl (Hydromorphone 1 Mg/Ml Syringe) 1 mg IM ONETIME ONE Stop: 04/22/21 20:29 Last Admin: 04/22/21 20:34 Dose: 1 mg Documented by: Hydromorphone HCl (Hydromorphone 1 Mg/Ml Syringe) Confirm Administered Dose 1 mg .ROUTE .STK-MED ONE Stop: 04/22/21 20:31 Last Admin: 04/22/21 20:34 Dose: Not Given Documented by: Sodium Chloride (Normal Saline) 1,000 mls @ 999 mls/hr IV ASDIRECTED [facility] Last Admin: 04/22/21 20:37 Dose: 999 mls/hr Documented by: Meropenem 500 mg/ Sodium (Chloride) 50 mls @ 100 mls/hr IV Q8H [facility] Last Admin: 04/23/21 05:53 Dose: 100 mls/hr Documented by: Lorazepam (Lorazepam 2 Mg/Ml Sdv) 1 mg IVPUSH ONETIME ONE Stop: 04/22/21 21:28 Last Admin: 04/22/21 21:38 Dose: 1 mg Documented by: Non-Formulary Medication (Melatonin [Melatonin]) 5 mg PO BEDTIME KATHERINE Ondansetron HCl (Ondansetron 4 Mg/2 Ml Sdv) 4 mg IVPUSH ONETIME ONE Stop: 04/22/21 20:30 Last Admin: 04/22/21 20:38 Dose: 4 mg Documented by:
[2021-04-23 08:23] VITALS: BP 147/73
[2021-04-23] MEDS ORDERED: TOFACITINIB CITRATE PO SCH (09:00)
[2021-04-23] MEDS ORDERED: Losartan 50 MG Tab PO SCH (09:00)
[2021-04-23] MEDS ORDERED: Spironolactone 25 MG Tab PO SCH (09:00)
--- NOTE | 2021-04-23 09:15 | CR ---
CHEST: Portable 04/23/2021 at 1:05 AM CLINICAL HISTORY:NG tube placement COMPARISON:None FINDINGS: Heart size and pulmonary vascularity are normal. There are atherosclerotic changes in the aorta.. There is an NG tube. The tip is in the mid stomach. Impression: No acute cardiopulmonary process NG tube in mid stomach. CHEST: Portable 04/23/2021 at 1:10 AM CLINICAL HISTORY:NG tube placement COMPARISON:Earlier same day FINDINGS: Single view of the mid to lower thorax and upper abdomen show an NG tube in place. Tip is in the mid stomach. There are some distended small bowel loops.. Impression: NG tube in mid stomach CHEST: Portable 04/23/2021 at 1:29 AM CLINICAL HISTORY:NG tube placement COMPARISON:Earlier same day FINDINGS: Lungs are clear. NG tube is in the mid stomach. Is withdrawn slightly since prior study. Impression: NG tube in mid stomach
[2021-04-23] MEDS ORDERED: Meropenem 500 MG in Sodium Chloride 0.9% 50 ML IV SCH (14:00)
[2021-04-23] MEDS ORDERED: Pantoprazole 40 MG Tab.CR PO SCH (21:00)
== END 2021-04-23 09:29 | disposition home or self-care (01) | DRG 395 ==
LOC: JP.ED 19:46 → JP.MS 21:25
PROVIDERS: ADMIT Surgery; ATTEND Surgery
DX: K43.0 Incisional hernia with obstruction, without gangrene (principal); I10 Essential (primary) hypertension; G47.30 Sleep apnea, unspecified; K21.9 Gastro-esophageal reflux disease without esophagitis; E11.9 Type 2 diabetes mellitus without complications; K42.0 Umbilical hernia with obstruction, without gangrene; Z88.2 Allergy status to sulfonamides; Z88.1 Allergy status to other antibiotic agents; Z79.899 Other long term (current) drug therapy; Z87.442 Personal history of urinary calculi
CPT/HCPCS: 36415; 71045; 71045-26; 74018; 74018-26; 74176; 80053; 81001; 83605; 85025; 86140; 87040; 96372; 96374; 96375; 99285-25; A9270-GY; J1170; J2060; J2185; J2405; J7030; J7120

== ENCOUNTER 2021-05-05 05:31 | Inpatient (IN) | payer MEDICAID ==
[2021-05-05] MEDS ORDERED: Dextrose 5%-Lactated Ringers 1,000 ML IV SCH (06:00)
[2021-05-05] MEDS ORDERED: Acetaminophen 500 MG Tab PO ONE (06:20)
[2021-05-05] MEDS ORDERED: Lidocaine 1% with EPINEPHrine 1:100,000 50 ML MDV ONE (06:40)
[2021-05-05] MEDS ORDERED: Bupivacaine 0.5% 50 ML MDV ONE (06:40)
[2021-05-05] MEDS ORDERED: ceFAZolin 2 GM in Sodium Chloride 0.9% 100 ML IV ONE (06:45)
[2021-05-05] MEDS ORDERED: fentaNYL 250 MCG/5 ML SDV ONE ×2 (07:06→08:07)
[2021-05-05] MEDS ORDERED: Ondansetron 4 MG/2 ML SDV ONE (07:07)
[2021-05-05] MEDS ORDERED: Dexamethasone 4 MG/ML SDV ONE (07:07)
[2021-05-05] MEDS ORDERED: Succinylcholine 200 MG/10 ML MDV ONE (07:07)
[2021-05-05] MEDS ORDERED: Rocuronium 50 MG/5 ML Vial ONE ×2 (07:07→09:07)
[2021-05-05] MEDS ORDERED: Glycopyrrolate 0.2 MG/ML 5 ML MDV ONE (07:07)
[2021-05-05] MEDS ORDERED: Neostigmine Methylsulfate 1 MG/ML 5 ML Syringe ONE (07:07)
[2021-05-05] MEDS ORDERED: Propofol 200 MG/20 ML SDV ONE (07:07)
[2021-05-05] MEDS ORDERED: ceFAZolin 2 GM in Premix Bag 1 BAG IV ONE (07:15)
[2021-05-05] MEDS ORDERED: Naloxone 0.4 MG/ML SDV IV PRN (08:00)
[2021-05-05] MEDS: Meropenem 500 MG SDV ONE ×2 (08:02→09:15)
[2021-05-05] MEDS: HYDROmorphone/Normal Saline 15 MG/30 ML PCA IV PRN (08:03)
[2021-05-05] MEDS ORDERED: Lactated Ringers 1,000 ML ONE (08:55)
[2021-05-05] MEDS ORDERED: Meropenem 500 MG SDV ONE (09:12)
[2021-05-05] MEDS ORDERED: Labetalol 20 MG/4 ML Syringe ONE (09:19)
[2021-05-05] MEDS ORDERED: fentaNYL 100 MCG/2 ML SDV ONE (09:42)
[2021-05-05] MEDS ORDERED: Sugammadex Sodium 200 MG/2 ML VIAL ONE (10:08)
[2021-05-05] MEDS ORDERED: hydrOXYzine HCL 100 MG/2 ML SDV IM ONE (10:37)
[2021-05-05] MEDS ORDERED: fentaNYL 100 MCG/2 ML SDV IVPUSH ONE (10:37)
[2021-05-05] MEDS ORDERED: 50% Dextrose in Water 50 ML Syringe IVPUSH PRN (10:53)
[2021-05-05] MEDS ORDERED: Glucagon,Human Recombinant 1 MG Vial IM PRN (10:53)
[2021-05-05] MEDS ORDERED: Insulin Lispro 100 Unit/ML 3 ML KwikPen SUBCUT ONE (10:53)
[2021-05-05] MEDS ORDERED: Glucose Gel 15 GM in 37.5 GM Tube PO PRN (11:48)
[2021-05-05] MEDS ORDERED: Ondansetron 4 MG/2 ML SDV IVPUSH PRN (11:53)
[2021-05-05] MEDS: Lactated Ringers 1,000 ML IV SCH ×2 (13:43→20:53)
[2021-05-05] MEDS: ceFAZolin 2 GM in Premix Bag 1 BAG IV SCH ×2 (14:18→21:49)
[2021-05-05] MEDS: Insulin Lispro 100 Unit/ML 3 ML KwikPen SUBCUT PRN ×2 (16:45→21:50)
[2021-05-05] MEDS: Pantoprazole 40 MG Tab.CR PO SCH ×2 (19:56→20:14)
[2021-05-05] MEDS: TOFACITINIB 5 MG PO SCH ×2 (19:56→20:14)
[2021-05-06] MEDS: ceFAZolin 2 GM in Premix Bag 1 BAG IV SCH (05:49)
[2021-05-06] MEDS: HYDROmorphone/Normal Saline 15 MG/30 ML PCA IV PRN (06:05)
[2021-05-06] MEDS: Lactated Ringers 1,000 ML IV SCH ×2 (07:19→16:56)
[2021-05-06] MEDS: Insulin Lispro 100 Unit/ML 3 ML KwikPen SUBCUT PRN (07:27)
--- NOTE | 2021-05-06 07:56 | PN ---
DATE OF SERVICE: 05/06/2021 SUBJECTIVE: Vini is postop day #1. Pain is controlled using a LAMINATION OPERATOR. He has been up ambulating. Blood sugar last checked was 197. Oral intake 600. Output via Loza catheter is 3080. He has no other concerns or questions. OBJECTIVE: GENERAL: Vini is a pleasant 60-year-old male. He is alert, orientated, has been sleeping with a CPAP on. VITAL SIGNS: TPR 98.1, 89, 16. Blood pressure 130/78. HEENT: Negative. NECK: Supple. HEART: Regular rate and rhythm. LUNGS: Clear. ABDOMEN: Dressings dry and intact. Abdominal binder is on. EXTREMITIES: Without peripheral edema. ASSESSMENT: 1. Exploratory laparotomy with lysis of adhesions. a. Small bowel resection with adherence to mesh. b. Closure of deserosalization mid transverse colon. c. Repair of recurrent incarcerated incisional hernia. d. Repair of recurrent incarcerated umbilical hernia and removal of peritoneal implant 55 cm over surface of small bowel. e. Removal of peritoneal mesh. f. Placement of Vicryl mesh. Postop diagnosis: 1. Incarcerated recurrent umbilical and incisional hernia. 2. Previous mesh separately adherent to small bowel and transverse colon. 3. Peritoneal implant over surface of small bowel (55 cm). Date of procedure: 05/05/2021, Sagar Jackson MD. PLAN: 1. Decrease IV to 100 mL per hour. 2. Colace 100 mg p.o. b.i.d. 3. Dulcolax 10 mg p.o. tabs b.i.d. 4. Discontinue Loza. 5. Continue clear liquids very sparingly. 6. Continue use of incentive spirometer and ambulation. 7. We will evaluate p.r.n. or in a.m. Amanda Su PA-C /[id number]
[2021-05-06] MEDS: Losartan 50 MG Tab PO SCH (08:42)
[2021-05-06] MEDS: Bisacodyl 5 MG Tab PO SCH ×2 (08:42→20:00)
[2021-05-06] MEDS: Docusate Sodium 100 MG Cap PO SCH ×2 (08:42→20:00)
[2021-05-06] MEDS: Spironolactone 25 MG Tab PO SCH (08:43)
[2021-05-06] MEDS: TOFACITINIB 5 MG PO SCH ×2 (08:43→20:00)
[2021-05-06] MEDS: hydrOXYzine HCL 100 MG/2 ML SDV IM PRN (14:08)
[2021-05-06] MEDS: Cyclobenzaprine 10 MG Tab PO PRN (16:36)
[2021-05-06] MEDS: Acetaminophen 500 MG Tab PO SCH ×2 (16:37→21:13)
[2021-05-06] MEDS: Pantoprazole 40 MG Tab.CR PO SCH (20:00)
[2021-05-07] MEDS: Cyclobenzaprine 10 MG Tab PO PRN ×3 (00:35→17:17)
[2021-05-07] MEDS: Lactated Ringers 1,000 ML IV SCH ×2 (02:59→12:25)
[2021-05-07] MEDS: Acetaminophen 500 MG Tab PO SCH ×4 (03:00→21:55)
[2021-05-07] MEDS: Docusate Sodium 100 MG Cap PO SCH ×2 (08:17→21:53)
[2021-05-07] MEDS: Losartan 50 MG Tab PO SCH (08:17)
[2021-05-07] MEDS: Spironolactone 25 MG Tab PO SCH (08:17)
[2021-05-07] MEDS: Bisacodyl 5 MG Tab PO SCH ×2 (08:17→21:53)
[2021-05-07] MEDS: Tamsulosin 0.4 MG Cap.ER PO SCH ×2 (08:17→10:39)
[2021-05-07] MEDS: TOFACITINIB 5 MG PO SCH ×2 (08:17→21:53)
[2021-05-07] MEDS: Insulin Lispro 100 Unit/ML 3 ML KwikPen SUBCUT PRN ×2 (08:20→12:26)
--- NOTE | 2021-05-07 09:47 | PN ---
DATE OF SERVICE: 05/07/2021 SUBJECTIVE: Vini is postoperative day #2. He did spike a temperature of 101 yesterday. Blood sugar is 147. Oral intake 900, output was 650. He is voiding in small amounts after his catheter was removed about 200 mL per hour. Pain has been controlled. He has been up, ambulating. He has no other questions or concerns. OBJECTIVE: GENERAL: Vini Leon is a pleasant 60-year-old male. He is alert and orientated. VITAL SIGNS: TPR is 97.4, 72, 16, blood pressure 161/78. HEENT: Negative. NECK: Supple. HEART: Regular rate and rhythm. LUNGS: Clear. ABDOMEN: Dressings dry and intact. Abdominal binder is on. EXTREMITIES: Without peripheral edema. ASSESSMENT: Exploratory laparotomy with lysis of adhesions: 1. Small-bowel resection adherence to mesh. 2. Closure of deserosalization mid transverse colon. 3. Repair of recurrent incarcerated incisional hernia. 4. Repair of recurrent incarcerated umbilical hernia and removal of peritoneal implant, 55 cm over surface of small bowel. 5. Removal of peritoneal mesh. 6. Placement of Vicryl mesh. POSTOPERATIVE DIAGNOSES: 1. Incarcerated recurrent umbilical and incisional hernias. 2. Previous mesh separate adherence to small bowel and transverse colon. 3. Peritoneal implant over surface of small bowel (55 cm). 4. Date of procedure: 05/05/2021. Sagar Jackson MD. PLAN: 1. Flomax 0.4 mg p.o. b.i.d. 2. May shower. 3. Continue use of incentive spirometer, ambulation encouraged. 4. We will evaluate p.r.n. or in a.m. Amanda Su PA-C /[id number]
[2021-05-07] MEDS: HYDROmorphone/Normal Saline 15 MG/30 ML PCA IV PRN (09:56)
[2021-05-07] MEDS: Pantoprazole 40 MG Tab.CR PO SCH (21:53)
[2021-05-08] MEDS: Acetaminophen 500 MG Tab PO SCH ×4 (04:22→21:16)
[2021-05-08] MEDS: Bisacodyl 5 MG Tab PO SCH ×2 (08:13→20:08)
[2021-05-08] MEDS: Spironolactone 25 MG Tab PO SCH (08:14)
[2021-05-08] MEDS: Losartan 50 MG Tab PO SCH (08:14)
[2021-05-08] MEDS: Docusate Sodium 100 MG Cap PO SCH ×2 (08:14→20:08)
[2021-05-08] MEDS: TOFACITINIB 5 MG PO SCH ×2 (08:15→20:09)
[2021-05-08] MEDS: Azithromycin 125 MG in Sodium Chloride 0.9% 100 ML IV SCH ×2 (08:16→21:19)
[2021-05-08] MEDS ORDERED: Magnesium Hydroxide 400 MG/5 ML Susp 30 ML Cup PO ONE (09:00)
[2021-05-08] MEDS: Lactated Ringers 1,000 ML IV SCH ×2 (10:14→22:44)
[2021-05-08] MEDS ORDERED: oxyCODONE 5 MG Tab PO PRN (19:48)
[2021-05-08] MEDS: Cyclobenzaprine 10 MG Tab PO PRN (20:06)
[2021-05-08] MEDS: hydrOXYzine HCL 100 MG/2 ML SDV IM PRN (20:06)
[2021-05-08] MEDS: Pantoprazole 40 MG Tab.CR PO SCH (20:11)
[2021-05-09] MEDS: Acetaminophen 500 MG Tab PO SCH ×4 (03:07→22:05)
[2021-05-09] MEDS: Lactated Ringers 1,000 ML IV SCH (08:49)
[2021-05-09] MEDS: Docusate Sodium 100 MG Cap PO SCH ×2 (09:00→21:23)
[2021-05-09] MEDS: TOFACITINIB 5 MG PO SCH ×2 (09:00→21:23)
[2021-05-09] MEDS: Spironolactone 25 MG Tab PO SCH (09:00)
[2021-05-09] MEDS: Losartan 50 MG Tab PO SCH (09:00)
[2021-05-09] MEDS: Azithromycin 125 MG in Sodium Chloride 0.9% 100 ML IV SCH ×2 (09:35→21:18)
[2021-05-09] MEDS ORDERED: Doxycycline 200 MG in Sodium Chloride 0.9% 250 ML IV ONE (10:00)
[2021-05-09] MEDS: Lactobacillus Rhamnosus GG (Probiotic) Cap PO SCH ×2 (10:52→21:23)
[2021-05-09] MEDS: Cyclobenzaprine 10 MG Tab PO PRN ×2 (12:13→23:25)
[2021-05-09] MEDS: Pantoprazole 40 MG Tab.CR PO SCH (21:24)
[2021-05-09] MEDS ORDERED: Doxycycline 100 MG in Sodium Chloride 0.9% 100 ML IV SCH (22:00)
[2021-05-10] MEDS: Acetaminophen 500 MG Tab PO SCH (05:00)
[2021-05-10 07:29] VITALS: BP 153/67; PULSE 70
[2021-05-10] MEDS: Spironolactone 25 MG Tab PO SCH (08:52)
[2021-05-10] MEDS: Lactobacillus Rhamnosus GG (Probiotic) Cap PO SCH (08:53)
[2021-05-10] MEDS: Losartan 50 MG Tab PO SCH (08:53)
[2021-05-10] MEDS: Docusate Sodium 100 MG Cap PO SCH (08:53)
[2021-05-10] MEDS: TOFACITINIB 5 MG PO SCH (08:54)
[2021-05-10] MEDS ORDERED: Doxycycline 100 MG Cap PO ONE (09:00)
--- NOTE | 2021-05-11 12:31 | PN ---
DATE OF SERVICE: 05/08/2021 The patient has been afebrile with stable vital signs. He is up and moving fairly well. Urine output has been satisfactory. Blood sugars have been running in the 140 to 150 range, so we will discontinue the Accu-Cheks, and otherwise, we will add some Zithromax IV and milk of magnesia orally to try to get things going as far as bowels going and passing some gas, and if he does not have a substantial bowel movement, we will start some more oral intake. Sagar Jackson MD /[id number]
--- NOTE | 2021-05-11 13:10 | DISCH ---
FINAL DIAGNOSES: 1. Incarcerated recurrent incisional and umbilical hernias. 2. Previous mesh separately adherent to small bowel and transverse colon. 3. Peritoneal implant over a surface of the small bowel. SECONDARY DIAGNOSES: 1. History of obstructive sleep apnea. 2. History of hypertension. 3. History of rheumatoid arthritis. 4. History of diabetes mellitus, diet controlled. OPERATIVE PROCEDURES: Done on 05/05, exploratory laparotomy with lysis of adhesions: 1. Small bowel resection including adherent overlying mesh. 2. Closure of deserosalized mid transverse colon. 3. Repair of recurrent incarcerated incisional hernia. 4. Repair of recurrent incarcerated umbilical hernia. 5. Removal of intraperitoneal mesh. 6. Removal of peritoneal nodule overlying small bowel. 7. Placement of Vicryl mesh to limit recurrent adhesion formation. SUMMARY: This is a 60-year-old male presenting with an increasingly symptomatic recurrent incisional hernia. This was recently incarcerated, reduced, and presents now for a semielective repair. On the day of the operation, the above procedures were undertaken. He did have a previous mesh that had the small bowel and transverse colon separately adherent to it. Small bowel resection was required being careful to avoid contamination of the remainder of the wound during that process. Postoperatively, he had a brief period of ileus which is now resolved, and he ultimately will be sent home with Tylenol and Flexeril p.r.n. for pain. Did develop redness across the lower most abdomen 2 days ago which appears to be resolving. As a precaution, he will be sent home with doxycycline 100 mg p.o. b.i.d. x7 days for that issue. Otherwise, instructed to continue using incentive spirometer as in the hospital for another 5 days, and avoid lifting, pushing, pulling greater than 25 for 6 weeks postoperatively. Follow up will be with Amanda Su at [facility] on 05/19/2021 at 9 a.m. /[id number]
--- NOTE | 2021-05-11 13:25 | PN ---
DATE OF SERVICE: 05/09/2021 The patient had a T-max of 99, vital signs otherwise stable. He did develop some redness across the lower abdomen. This appears to be dissipated somewhat during the night some doxycyline empirically. Otherwise, he is moving his bowels, moved up to a regular diet. He will continue to maximize activity and work with pulmonary toilet. Assuming the redness in the lower abdomen continues to dissipate, he will likely be discharged to home tomorrow. Sagar Jackson MD /[id number]
--- NOTE | 2021-05-18 12:55 | OR ---
DATE OF PROCEDURE: 05/05/2021 SURGEON: Sagar Jackson MD PREOPERATIVE DIAGNOSIS: Recurrent incisional hernia. POSTOPERATIVE DIAGNOSES: 1. Recurrent incarcerated incisional and recurrent incarcerated umbilical hernias. 2. Previously-placed mesh separate, adherent to small bowel and transverse colon. 3. Peritoneal implant (5.5 cm) over serosa of small bowel. OPERATIVE PROCEDURE: Exploratory laparotomy with lysis of adhesions and: 1. Small bowel resection including a portion of adherent mesh (20852). 2. Closure of deserosalization of the transverse colon (04224). 3. Repair of recurrent incarcerated incisional hernia with concurrent removal of previous intraperitoneal mesh (79685, 50722). 4. Repair of recurrent incarcerated umbilical hernia (32650). 5. Removal peritoneal nodule overlying small bowel (57217). 6. Placement of Vicryl mesh to displace abdominal and pelvic melchor from underlying viscera to limit recurrent adhesion formation (42126). ANESTHESIA: General. SECURITY SYSTEM ENGINEER: Amanda Su PA-C. INDICATIONS FOR PROCEDURE: This is a 60-year-old male, presenting with a large recurrent incisional hernia that is located in the supraumbilical area. The hernia may involve the umbilicus to some extent as well or be a separate hernia at that location. The patient was recently hospitalized overnight with the hernia becoming strangulated. This did reduce so as to allow some reduction in the edema and thus chances of intraoperative infection, the surgery was delayed up to this point. Plan is to proceed with an exploratory laparotomy and repair of the hernia, most likely with mesh, with possible bowel resection and other procedures as indicated by intraoperative findings, that if we need to resect bowel with it done in a very clean manner and segregated from the remainder of the abdomen with instruments and surgical gloves and gowns, we may select to place a permanent mesh with the small risk of infection, but obviating what would otherwise be nearly 100% recurrence if a simple primary closure was undertaken of the hernia. Otherwise, potential risks including bleeding, infection, injury to underlying viscera, leaks from any GI tract closures, possible recurrence of the hernia, mesh becoming infected were all reviewed along with possible cardiopulmonary, septic, or hemorrhagic complications leading to , and the patient wishes to proceed. DETAILS OF PROCEDURE: The patient was taken to the operating room, placed in a supine position. After general endotracheal anesthesia was induced, the Loza catheter was inserted and the abdomen prepped and draped. Previous midline incision was then made and carried down through the skin and subcutaneous tissue. Initially, the incision was in the supraumbilical midline. This did extend somewhat inferiorly in order to remove some mesh in that area as well as in the level of the fascia. The fascia was then opened in the supraumbilical area and the mesh was then divided in midline down to the umbilicus. Two points of adherence between the bowel where the bowel essentially fused to the mesh was immediate umbilical area involving a loop of small bowel and then in the superior aspect of the mesh, a segment of transverse colon. The latter was then dissected off the mesh. There was some deserosalization of the colon over a length of about 3 cm, but no entrance into the lumen of the colon and this was then reinforced with closure by means of a ANDERSON shin load and subsequently the fibrin sealant and no entrance into the bowel lumen was encountered during that phase. The small bowel was then dissected free of some extensive adhesions in the mid abdomen. During the course of the dissection, a fan-like peritoneal implant over the small bowel was encountered. This measured 5.5 cm. This was obviously collapsed into a small heap for undergoing pathologic review, but natively was 5.5 cm length and was sent for separate histologic evaluation. The small bowel was initially dissected down to the point where it adhered to the mesh. A segment of the mesh was then excised. This bowel was not felt to be salvageable due to the fusion with the mesh and the mesh was then excised along with the bowel. Prior to closure of transverse colon, the wound edges including the previously placed intraperitoneal mesh was walled off with sponges soaked with meropenem and Zyvox antibiotics and at that point, the small bowel was resected being divided distally with the ANDERSON stapler as was the underlying mesentery and the specimen delivered from the field. Small bowel continuity was then accomplished with internal firing of the Endo-ANDERSON 60 mm stapler followed by a 45 mm internal firing and then the common opening then closed transversely with a purple load, angles anastomosed, and mesenteric defect approximated with some 3-0 Vicryl stitch and reinforced with fibrin sealant as well. At this point, it became apparent that we were done with the gastrointestinal work, and given this, the abdomen was irrigated with meropenem and Zyvox containing saline solution. The gauze overlying the edges of the wound was then removed and new gowns and gloves placed. The instruments used for the bowel work were all discarded off the field. To the pre-existing mesh were extensive adhesions and the edges of this had curled up quite a bit causing quite a bit of distortion that was associated with this recurrence of the umbilical hernia containing some incarcerated omentum within it. The previous mesh was then removed from the field after being dissected free from the abdominal wall. This latter required an extension of incision somewhat below the umbilicus. At this point, the area was anesthetized, the decision made to proceed with the mesh placement. There is some risk of the mesh becoming infected, but not placing the mesh would place the patient at a virtual 100% chance of needing to have a recurrent hernia and additional surgeries for that problem. The defect was measured out and a Ventrio ST mesh measuring 19.6 x 24.6 cm was selected. This was soaked in antibiotic-containing saline solution which did absorb into the mesh consisting of meropenem and Zyvox. At roughly 5 cm intervals on the polypropylene side of the mesh, the 2-0 Vicryl sutures were placed and then a stab was then placed on the abdominal wall where the mesh would be pulled up while the sutures could maintain a wide margin of the mesh placement away from the fascial defect. This was then pulled into the upper half of the abdomen. The long axis was placed in the vertical midline, contouring the orientation of the mesh. Underlying this, then Vicryl mesh was placed underneath the mesh and then from there along the adjacent abdominal and pelvic wall to limit recurrent adhesion formation. The remaining sutures were then pulled up and these were then tied and the mesh was then further affixed circumferentially with titanium tacking screws to the underside of the mesh shelf so as to protect it from the underlying viscera placement. Once again, the area irrigated with antibiotic-containing saline solution. The midline fascia was then approximated with a #2 Vicryl stitch. The subcutaneous tissue with 2 layers of 3-0 Vicryl and 4-0 Vicryl stitch and the skin with laura. Dressing was applied. Bilateral transverse abdominis plane blocks were placed earlier in the case. The patient was taken to the recovery room in satisfactory condition. Physician junior sales assistant, Amanda Su, played an essential role in assisting in this case, helping to position the patient, retract structures as needed, as well as suturing and cutting sutures when indicated. Her presence improved patient safety and decreased the operative time. Sagar Jackson MD /[id number]
== END 2021-05-10 09:00 | disposition home or self-care (01) | DRG 330 ==
LOC: JP.MS 05:31 → JP.SDS 05:31 → JP.MS 11:30 → EDSTATUS 14:00
PROVIDERS: ADMIT Surgery; ATTEND Surgery
PROC: 0DB80ZZ Excision of Small Intestine, Open Approach (ICD-10-PCS; principal; 2021-05-05)
PROC: 0WQF0ZZ Repair Abdominal Wall, Open Approach (ICD-10-PCS; 2021-05-05)
PROC: 0WUF0JZ Supplement Abdominal Wall with Synthetic Substitute, Open Approach (ICD-10-PCS; 2021-05-05)
PROC: 0DBW0ZZ Excision of Peritoneum, Open Approach (ICD-10-PCS; 2021-05-05)
PROC: 0DQL0ZZ Repair Transverse Colon, Open Approach (ICD-10-PCS; 2021-05-05)
PROC: 3E0M05Z Introduction of Adhesion Barrier into Peritoneal Cavity, Open Approach (ICD-10-PCS; 2021-05-05)
PROC: 0DPD0JZ Removal of Synthetic Substitute from Lower Intestinal Tract, Open Approach (ICD-10-PCS; 2021-05-05)
DX: K42.0 Umbilical hernia with obstruction, without gangrene (principal); K91.71 Accidental puncture and laceration of a digestive system organ or structure during a digestive system procedure; K66.0 Peritoneal adhesions (postprocedural) (postinfection); K43.0 Incisional hernia with obstruction, without gangrene; E11.9 Type 2 diabetes mellitus without complications; I10 Essential (primary) hypertension; G47.33 Obstructive sleep apnea (adult) (pediatric); M06.9 Rheumatoid arthritis, unspecified; Y83.8 Other surgical procedures as the cause of abnormal reaction of the patient, or of later complication, without mention of misadventure at the time of the procedure
CPT/HCPCS: 82947; 88300; 88302; 88305; 88307; 94762; A9270-GY; C1713; C1781; J0171; J0330; J0456; J0690; J1100; J1170; J1815; J2020; J2185; J2405; J2704; J2710; J2795; J3010; J3410; J3490; J7050; J7120; J7121

== ENCOUNTER 2021-05-14 15:07 | Emergency (ER) | payer MEDICAID ==
[2021-05-14 16:21] VITALS: BP 145/70; PULSE 101
--- NOTE | 2021-05-14 17:27 | EDM.PDOC ---
<OfficerSamy - Last Filed: 05/14/21 17:23> ED HPI GENERAL MEDICAL PROBLEM - General Chief Complaint: Respiratory Problem Stated Complaint: BREATHING PROBLEMS, COUGHING POST SURGERY Time Seen by Provider: 05/14/21 17:18 Source of Information: Reports: Patient, Family, RN Notes Reviewed History Limitations: Reports: No Limitations - History of Present Illness INITIAL COMMENTS - FREE TEXT/NARRATIVE: 60-year-old gentleman presents emergency department day complaint of hurts to take a deep breath, he is postop surgery about 10 days. States over the last couple days he has noticed it hurts when he uses his incentive spirometer he has had no fevers no nausea vomiting no chest pain no history of DVT or PE - Related Data Allergies Allergy/AdvReac Type Severity Reaction Status Date / Time trazodone Allergy Intermediate Difficulty Verified 05/14/21 16:58 Breathing azathioprine Allergy Unknown Other Verified 05/14/21 16:58 sulfamethoxazole Allergy Unknown Cannot Verified 05/14/21 16:58 [From Bactrim] Remember trimethoprim [From Bactrim] Allergy Unknown Cannot Verified 05/14/21 16:58 Remember Home Meds: Home Meds Losartan [Cozaar] 50 mg PO DAILY 06/24/13 [History] Omeprazole 20 mg PO BEDTIME 06/24/13 [History] Spironolactone [Aldactone] 25 mg PO DAILY 01/01/17 [History] cycloSPORINE [Restasis] 1 drop EYEBOTH BID 05/01/21 [History] Fluorometholone [Fluorometholone 0.1% Ophth Susp] 1 drop EYEBOTH DAILY 05/05/21 [History] Tofacitinib Citrate [Xeljanz] 5 mg PO BID 05/05/21 [History] Acetaminophen [Tylenol] 650 mg PO Q4H PRN 05/14/21 [History] Cyclobenzaprine [Flexeril] 10 mg PO TID PRN 05/14/21 [History] Doxycycline [Doxycycline Hyclate] 100 mg PO BID 05/14/21 [History] Past Medical History Cardiovascular History: Reports: Heart Murmur, Hypertension Respiratory History: Reports: Sleep Apnea Gastrointestinal History: Reports: GERD, Other (See Below) Other Gastrointestinal History: diverticultits Genitourinary History: Reports: Renal Calculus Musculoskeletal History: Reports: RA Neurological History: Reports: MS Endocrine/Metabolic History: Reports: Diabetes, Type II Other Endocrine/Metabolic History: BS 174 this am Immunologic History: Reports: Immunosuppression Dermatologic History: Reports: Other (See Below) Other Dermatologic History: roseatia - Infectious Disease History Infectious Disease History: Reports: C-Difficile, Chicken Pox - Past Surgical History Head Surgeries/Procedures: Reports: None HEENT Surgical History: Reports: Other (See Below) Other HEENT Surgeries/Procedures: 2 cornea transplants Cardiovascular Surgical History: Reports: None GI Surgical History: Reports: Colon, Colonoscopy, EGD, Hernia Repair/Other, Other (See Below) Other GI Surgeries/Procedures: colon resection Male Surgical History: Reports: Lithotripsy ([facility]) Endocrine Surgical History: Reports: None Neurological Surgical History: Reports: None Musculoskeletal Surgical History: Reports: None Social & Family History - Family History Family Medical History: No Pertinent Family History - Tobacco Use Tobacco Use Status *Q: Never Tobacco User - Caffeine Use Caffeine Use: Reports: Energy Drinks, Tea - Recreational Drug Use Recreational Drug Use: No - Living Situation & Occupation Living situation: Reports: , 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 Denies: Cough, Sputum Cardiovascular: Reports: Dyspnea on Exertion. Denies: Chest Pain GI/Abdominal: Reports: No Symptoms ED EXAM, GENERAL - Physical Exam Exam: See Below Free Text/Narrative:: [place] criteria puts him at moderate risk Exam Limited By: No Limitations General Appearance: Alert, WD/WN, No Apparent Distress Respiratory/Chest: No Respiratory Distress, Lungs Clear, Normal Breath Sounds, No Accessory Muscle Use, Chest Non-Tender Cardiovascular: Regular Rate, Rhythm, No Murmur GI/Abdominal: Soft, Non-Tender Departure - Departure Disposition: Home, Self-Care 01 Clinical Impression: Shortness of breath, Reactive airway disease - Discharge Information Instructions: Shortness of Breath, Adult, [id number] Referrals: PCP,None [Primary Care Provider] - Forms: ED Department Discharge Care Plan Goals: Continue your current medications and use albuterol inhaler as needed every few hours for wheezing or shortness of breath. Return anytime if worsening despite treatment or you develop other concerns such as fever or increased pain. Sepsis Event Note (ED) - Evaluation Sepsis Screening Result: No Definite Risk <Jay Huffman - Last Filed: 05/14/21 22:56> Course - Vital Signs Last Recorded V/S: Last Vital Signs Temp 97.9 F 05/14/21 17:10 Pulse 101 H 05/14/21 17:10 Resp 16 05/14/21 17:10 BP 145/70 H 05/14/21 17:10 Pulse Ox 95 05/14/21 17:10 - Orders/Labs/Meds Orders: Active Orders 24 hr Category Date Time Status Chest 2V [CR] Stat Exams 05/14/21 17:23 Taken Peripheral IV Insertion Adult [OM.PC] Urgent Oth 05/14/21 18:44 Ordered Labs: Laboratory Tests 05/14/21 05/14/21 05/14/21 Range/Units 17:54 18:10 18:10 WBC 12.1 H (4.5-11.0) K/uL RBC 4.66 (4.30-5.90) M/uL Hgb 13.1 (12.0-15.0) g/dL Hct 39.8 L (40.0-54.0) % MCV 85 (80-98) fL MCH 28 (27-31) pg MCHC 33 (32-36) % Plt Count 517 H (150-400) K/uL Neut % (Auto) 72.7 H (36-66) % Lymph % (Auto) 12.8 L (24-44) % Branch % (Auto) 9.1 H (2-6) % Eos % (Auto) 4.9 H (2-4) % Baso % (Auto) 0.5 (0-1) % D-Dimer, Quantitative (0.0-500.0) ng/mL Sodium 137 L (140-148) mmol/L Potassium 4.2 (3.6-5.2) mmol/L Chloride 101 (100-108) mmol/L Carbon Dioxide 24 (21-32) mmol/L Anion Gap 16.2 H (5.0-14.0) mmol/L BUN 12 (7-18) mg/dL Creatinine 0.9 (0.8-1.3) mg/dL Est Cr Clr Drug Dosing 77.78 mL/min Estimated GFR (MDRD) > 60 (>60) Glucose 127 H (74-106) mg/dL Calcium 8.8 (8.5-10.1) mg/dL Total Bilirubin 0.2 D (0.2-1.0) mg/dL AST 16 (15-37) U/L ALT 39 (12-78) U/L Alkaline Phosphatase 57 (46-116) U/L Troponin I < 0.017 (0.000-0.056) ng/mL Total Protein 6.9 (6.4-8.2) g/dL Albumin 3.1 L (3.4-5.0) g/dL Globulin 3.8 H (2.3-3.5) g/dL Albumin/Globulin Ratio 0.8 L (1.2-2.2) SARS CoV-2 RNA Rapid CANDY Negative 05/14/21 Range/Units 18:10 WBC (4.5-11.0) K/uL RBC (4.30-5.90) M/uL Hgb (12.0-15.0) g/dL Hct (40.0-54.0) % MCV (80-98) fL MCH (27-31) pg MCHC (32-36) % Plt Count (150-400) K/uL Neut % (Auto) (36-66) % Lymph % (Auto) (24-44) % Branch % (Auto) (2-6) % Eos % (Auto) (2-4) % Baso % (Auto) (0-1) % D-Dimer, Quantitative 3189.81 H (0.0-500.0) ng/mL Sodium (140-148) mmol/L Potassium (3.6-5.2) mmol/L Chloride (100-108) mmol/L Carbon Dioxide (21-32) mmol/L Anion Gap (5.0-14.0) mmol/L BUN (7-18) mg/dL Creatinine (0.8-1.3) mg/dL Est Cr Clr Drug Dosing mL/min Estimated GFR (MDRD) (>60) Glucose (74-106) mg/dL Calcium (8.5-10.1) mg/dL Total Bilirubin (0.2-1.0) mg/dL AST (15-37) U/L ALT (12-78) U/L Alkaline Phosphatase (46-116) U/L Troponin I (0.000-0.056) ng/mL Total Protein (6.4-8.2) g/dL Albumin (3.4-5.0) g/dL Globulin (2.3-3.5) g/dL Albumin/Globulin Ratio (1.2-2.2) SARS CoV-2 RNA Rapid CANDY Meds: Medications Discontinued Medications Generic Name Dose Route Start Last Admin Trade Name Freq PRN Reason Stop Dose Admin Albuterol/Ipratropium 3 ml 05/14/21 18:39 05/14/21 18:51 Albuterol/Ipratropium 3.0-0.5 Mg/3 Ml Neb Soln NEB 05/14/21 18:40 3 ml ONETIME ONE Administration Sodium Chloride 1,000 mls @ 500 mls/hr 05/14/21 18:45 05/14/21 18:55 Normal Saline IV 500 mls/hr ASDIRECTED KATHERINE Administration Sodium Chloride 100 mls @ 3 mls/sec 05/14/21 19:00 05/14/21 19:21 Normal Saline IV 3 mls/sec ASDIRECTED KATHERINE Administration Iopamidol 100 ml 05/14/21 19:00 05/14/21 19:21 Iopamidol 755 Mg/Ml 100 Ml Bottle IV 100 ml . DIRECTED KATHERINE Administration Sodium Chloride 10 ml 05/14/21 18:44 05/14/21 18:55 Sodium Chloride 0.9% 10 Ml Syringe FLUSH 10 ml ASDIRECTED PRN Administration Keep Vein Open Sodium Chloride 10 ml 05/14/21 18:56 05/14/21 19:22 Sodium Chloride 0.9% 10 Ml Sdv FLUSH 05/14/21 18:57 10 ml ONETIME ONE Administration - Re-Assessments/Exams Free Text/Narrative Re-Assessment/Exam: 05/14/21 20:00 IMPRESSIONS: 1. No CT evidence of acute pulmonary emboli seen. 2. Aneurysmal enlargement of the ascending aorta is noted measuring 4.6 cm. Ectasia of the descending thoracic aorta is present measuring 2.8 cm. 3. Segmental consolidation is present in the posterior basal segments of both lower lobes, likely due to atelectasis. Dictated by Norm Jones MD @ 05/14/2021 7:49:00 PM Patient improved significantly after the DuoNeb, he will be discharged with an albuterol inhaler. Departure - Departure Time of Disposition: 20:15 Sepsis Event Note (ED) - Focused Exam Vital Signs: Vital Signs Temp Pulse Resp BP Pulse Ox 05/14/21 17:10 97.9 F 101 H 16 145/70 H 95 05/14/21 16:16 97.9 F 101 H 16 145/70 H 95
[2021-05-14] MEDS ORDERED: Albuterol/Ipratropium 3.0-0.5 MG/3 ML Neb Soln NEB ONE (18:39)
[2021-05-14] MEDS ORDERED: Sodium Chloride 0.9% 10 ML Syringe FLUSH PRN (18:44)
[2021-05-14] MEDS ORDERED: Sodium Chloride 0.9% 1,000 ML IV SCH (18:45)
[2021-05-14] MEDS ORDERED: Sodium Chloride 0.9% 10 ML SDV FLUSH ONE (18:56)
[2021-05-14] MEDS ORDERED: Sodium Chloride 0.9% 100 ML IV SCH (19:00)
[2021-05-14] MEDS ORDERED: Iopamidol 755 Mg/ML 100 ML Bottle IV SCH (19:00)
--- NOTE | 2021-05-14 19:50 | CRLCT ---
For Patients: As a result of the Century Cures Act, medical imaging exams and procedure reports are released immediately into your electronic medical record. You may view this report before your referring provider. If you have questions, please contact your health care provider. INDICATION: Surgery 1 week ago and now shortness of breath TECHNIQUE: CT chest with i.v. contrast using pulmonary angiographic technique. Coronal and sagittal reformats were obtained. CONTRAST: 100 mL Isovue 370 COMPARISON: None FINDINGS: Cardiovascular: The pulmonary arteries are unremarkable in enhancement with no evidence of acute pulmonary embolism. The heart has an unremarkable appearance and size. Aneurysmal enlargement of the ascending aorta is noted measuring 4.6 cm. Ectasia of the descending thoracic aorta is present measuring 2.8 cm. Mediastinum: No mass or adenopathy seen. Lung: Segmental consolidation is present in the posterior basal segments of both lower lobes, likely due to atelectasis. Pleura and pericardium: No sign of pleural effusion seen. No significant pericardial effusion is present. Chest wall and axilla: No mass or adenopathy seen. Bone: Unremarkable for age. Upper abdomen: There are layering densities in the gallbladder which may be due to sludge versus noncalcified gallstones. IMPRESSIONS: 1. No CT evidence of acute pulmonary emboli seen. 2. Aneurysmal enlargement of the ascending aorta is noted measuring 4.6 cm. Ectasia of the descending thoracic aorta is present measuring 2.8 cm. 3. Segmental consolidation is present in the posterior basal segments of both lower lobes, likely due to atelectasis. Dictated by Norm Jones MD @ 05/14/2021 7:49:00 PM Please note that all CT scans at this facility use dose modulation, iterative reconstruction, and/or weight-based dosing when appropriate to reduce radiation dose to as low as reasonably achievable. Dictated by: Norm Jones MD @ 05/14/2021 19:49:10 (Electronically Signed)
--- NOTE | 2021-05-15 09:03 | CR ---
CHEST: 2 view CLINICAL HISTORY:Chest pain COMPARISON:December 31 FINDINGS: The heart size, pulmonary vascularity and hilar structures are normal. No infiltrate effusion or pneumothorax is seen. There is some streaky density in the lower lobes bilaterally which appears to be atelectasis. There is less than optimal inspiration. There are atherosclerotic changes in the aorta. IMPRESSION: Streaky bibasal densities is most likely some subsegmental atelectasis. There is less than optimal inspiration If clinical symptomatology persists or worsens a repeat exam is recommended.
== END 2021-05-14 20:13 | disposition home or self-care (01) ==
LOC: JP.ED 15:07
DX: J45.909 Unspecified asthma, uncomplicated (principal); K21.9 Gastro-esophageal reflux disease without esophagitis; E11.9 Type 2 diabetes mellitus without complications; Z88.5 Allergy status to narcotic agent; Z88.1 Allergy status to other antibiotic agents; Z79.899 Other long term (current) drug therapy; Z20.822 Contact with and (suspected) exposure to COVID-19
CPT/HCPCS: 36415; 71046; 71275; 80053; 84484; 85025; 85379; 87635; 94640; 99285; J7030; Q9967; J7620-GY; U0002

== ENCOUNTER 2021-05-16 10:01 | Observation (INO) | payer MEDICAID ==
[2021-05-16] MEDS ORDERED: Sodium Chloride 0.9% 10 ML Syringe FLUSH PRN ×2 (10:24→15:44)
[2021-05-16] MEDS ORDERED: Lactated Ringers 1,000 ML IV ONE (10:32)
--- NOTE | 2021-05-16 10:35 | EDM.PDOC ---
ED HPI GENERAL MEDICAL PROBLEM - General Chief Complaint: Abdominal Pain Stated Complaint: ABD PAIN,COLD SWEATS,NAUSEA Time Seen by Provider: 05/16/21 10:20 Source of Information: Reports: Patient, Old Records, RN History Limitations: Reports: No Limitations - History of Present Illness INITIAL COMMENTS - FREE TEXT/NARRATIVE: 60 yo male presents with onset last night of increased abdominal pain, nausea with one emesis. He has not had a fever. His stools have been loose since he had his hernia repair by Dr. Jackson one week ago. No SOB. No blood in his emesis or stool. Was not aware of a rapid HR. Onset: Gradual Onset Date: 05/15/21 Duration: Hour(s):, Getting Worse Location: Reports: Abdomen Quality: Reports: Ache Severity: Mild Improves with: Reports: Rest Worsens with: Reports: Other (time) Context: Reports: Other (See HPI) Associated Symptoms: Reports: Loss of Appetite, Nausea/Vomiting, Other (loose stools). 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 GENETICIST: Reports: Other (see below) (none) Middle Abdomen Pain Score (Numeric/FACES): 5 - Related Data Allergies Allergy/AdvReac Type Severity Reaction Status Date / Time trazodone Allergy Intermediate Difficulty Verified 05/16/21 10:15 Breathing azathioprine Allergy Unknown Other Verified 05/16/21 10:15 sulfamethoxazole Allergy Unknown Cannot Verified 05/16/21 10:15 [From Bactrim] Remember trimethoprim [From Bactrim] Allergy Unknown Cannot Verified 05/16/21 10:15 Remember Home Meds: Home Meds Losartan [Cozaar] 50 mg PO DAILY 06/24/13 [History] Omeprazole 20 mg PO BEDTIME 06/24/13 [History] Spironolactone [Aldactone] 25 mg PO DAILY 01/01/17 [History] cycloSPORINE [Restasis] 1 drop EYEBOTH BID 05/01/21 [History] Fluorometholone [Fluorometholone 0.1% Ophth Susp] 1 drop EYEBOTH DAILY 05/05/21 [History] Tofacitinib Citrate [Xeljanz] 5 mg PO BID 05/05/21 [History] Acetaminophen [Tylenol] 650 mg PO Q4H PRN 05/14/21 [History] Cyclobenzaprine [Flexeril] 10 mg PO TID PRN 05/14/21 [History] Doxycycline [Doxycycline Hyclate] 100 mg PO BID 05/14/21 [History] Past Medical History HEENT History: Reports: None Cardiovascular History: Reports: Heart Murmur, Hypertension Respiratory History: Reports: Sleep Apnea Gastrointestinal History: Reports: GERD, Other (See Below) Other Gastrointestinal History: diverticultits Genitourinary History: Reports: Renal Calculus Musculoskeletal History: Reports: RA Neurological History: Reports: MS Endocrine/Metabolic History: Reports: Diabetes, Type II Other Endocrine/Metabolic History: BS 174 this am Immunologic History: Reports: Immunosuppression Dermatologic History: Reports: Other (See Below) Other Dermatologic History: roseatia - Infectious Disease History Infectious Disease History: Reports: C-Difficile, Chicken Pox - Past Surgical History Head Surgeries/Procedures: Reports: None HEENT Surgical History: Reports: Other (See Below) Other HEENT Surgeries/Procedures: 2 cornea transplants Cardiovascular Surgical History: Reports: None GI Surgical History: Reports: Colon, Colonoscopy, EGD, Hernia Repair/Other, Other (See Below) Other GI Surgeries/Procedures: colon resection Male Surgical History: Reports: Lithotripsy ([facility]) Endocrine Surgical History: Reports: None Neurological Surgical History: Reports: None Musculoskeletal Surgical History: Reports: None Social & Family History - Family History Family Medical History: No Pertinent Family History - Tobacco Use Tobacco Use Status *Q: Never Tobacco User - Caffeine Use Caffeine Use: Reports: Energy Drinks, Tea - Living Situation & Occupation Living situation: Reports: , 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 Denies: Black Stool, Bloody Stool, Hematemesis, Hematochezia, Melena : Reports: No Symptoms Musculoskeletal: Reports: No Symptoms Skin: Reports: No Symptoms Neurological: Reports: No Symptoms Psychiatric: Reports: No Symptoms ED EXAM, GI/ABD - Physical Exam Exam: See Below Exam Limited By: No Limitations General Appearance: Alert, WD/WN, No Apparent Distress Eyes: Bilateral: Normal Appearance Ears: Normal External Exam, Normal Canal, Hearing Grossly Normal Nose: Normal Inspection, No Blood Throat/Mouth: Normal Lips, Normal Oropharynx, Normal Voice, No Airway Compromise, Other (slightly dry oral mucosa) Head: Atraumatic, Normocephalic Neck: Normal Inspection Respiratory/Chest: No Respiratory Distress, Lungs Clear, Normal Breath Sounds, No Accessory Muscle Use Cardiovascular: Regular Rate, Rhythm GI/Abdominal Exam: Normal Bowel Sounds, Distended (mild), Tender (diffusely), Other (multiple surgical wounds from his recent laparoscopic surgery with laura. ). No: Soft, Non-Tender, No Distention Back Exam: Normal Inspection. No: CVA Tenderness (R), CVA Tenderness (L) Extremities: Normal Inspection, Normal Range of Motion, Non-Tender, No Pedal Edema Neurological: Alert, Oriented, CN II-XII Intact, Normal Cognition, No Motor/Sensory Deficits Psychiatric: Normal Affect, Normal Mood Skin Exam: Warm, Dry, Normal Color, No Rash, Other (surgical wounds without obvious infection.) Course - Vital Signs Text/Narrative:: Dr. Jackson called @ 1334h Dr. Harvey called @ 1342h Last Recorded V/S: Last Vital Signs Temp 36.2 C 05/16/21 10:20 Pulse 137 H 05/16/21 10:20 Resp 20 05/16/21 10:20 BP 145/87 H 05/16/21 10:20 Pulse Ox 97 05/16/21 10:20 - Orders/Labs/Meds Orders: Active Orders 24 hr Category Date Time Status Cardiac Monitoring [RC] .As Directed Care 05/16/21 10:24 Active Iopamidol [Isovue-300 (61%)] Med 05/16/21 12:20 Active 150 ml IV . DIRECTED PRN Sodium Chloride 0.9% [Saline Flush] Med 05/16/21 10:24 Active 10 ml FLUSH ASDIRECTED PRN Saline Lock Insert [OM.PC] Routine Oth 05/16/21 10:24 Ordered Medication Orders Iopamidol (Iopamidol 612 Mg/Ml 150 Ml Bottle) 150 ml IV . DIRECTED PRN PRN Reason: RADIOLOGY EXAM Stop: 05/17/21 12:21 Last Admin: 05/16/21 12:49 Dose: 150 ml Documented by: STEPHANIEZHANE Sodium Chloride (Sodium Chloride 0.9% 10 Ml Syringe) 10 ml FLUSH ASDIRECTED PRN PRN Reason: Keep Vein Open Last Admin: 05/16/21 10:40 Dose: 10 ml Documented by: ARLET Labs: Laboratory Tests 05/16/21 05/16/21 05/16/21 Range/Units 10:36 10:36 10:36 WBC 14.6 H (4.5-11.0) K/uL RBC 5.37 (4.30-5.90) M/uL Hgb 14.5 (12.0-15.0) g/dL Hct 44.5 (40.0-54.0) % MCV 83 (80-98) fL MCH 27 (27-31) pg MCHC 33 (32-36) % Plt Count 626 H (150-400) K/uL Sodium 134 L (140-148) mmol/L Potassium 4.3 (3.6-5.2) mmol/L Chloride 98 L (100-108) mmol/L Carbon Dioxide 23 (21-32) mmol/L Anion Gap 17.3 H (5.0-14.0) mmol/L BUN 15 (7-18) mg/dL Creatinine 1.1 (0.8-1.3) mg/dL Est Cr Clr Drug Dosing 63.64 mL/min Estimated GFR (MDRD) > 60 (>60) Glucose 206 H (74-106) mg/dL Lactic Acid 1.2 (0.4-2.0) mmol/L Calcium 9.9 (8.5-10.1) mg/dL C-Reactive Protein 5.96 H (0.0-0.3) mg/dL Urine Color (YELLOW) Urine Appearance (CLEAR) Urine pH (5.0-8.0) Ur Specific [place] (1.008-1.030) Urine Protein (NEGATIVE) mg/dL Urine Glucose (UA) (NEGATIVE) mg/dL Urine Ketones (NEGATIVE) mg/dL Urine Occult Blood (NEGATIVE) Urine Nitrite (NEGATIVE) Urine Bilirubin (NEGATIVE) Urine Urobilinogen (0.2-1.0) EU/dL Ur Leukocyte Esterase (NEGATIVE) Urine RBC (0-5) Urine WBC (0-5) Ur Epithelial Cells Amorphous Sediment Urine Bacteria Urine Mucus Urine Other 05/16/21 Range/Units 12:26 WBC (4.5-11.0) K/uL RBC (4.30-5.90) M/uL Hgb (12.0-15.0) g/dL Hct (40.0-54.0) % MCV (80-98) fL MCH (27-31) pg MCHC (32-36) % Plt Count (150-400) K/uL Sodium (140-148) mmol/L Potassium (3.6-5.2) mmol/L Chloride (100-108) mmol/L Carbon Dioxide (21-32) mmol/L Anion Gap (5.0-14.0) mmol/L BUN (7-18) mg/dL Creatinine (0.8-1.3) mg/dL Est Cr Clr Drug Dosing mL/min Estimated GFR (MDRD) (>60) Glucose (74-106) mg/dL Lactic Acid (0.4-2.0) mmol/L Calcium (8.5-10.1) mg/dL C-Reactive Protein (0.0-0.3) mg/dL Urine Color Yellow (YELLOW) Urine Appearance Slightly cloudy A (CLEAR) Urine pH 5.5 (5.0-8.0) Ur Specific [place] >= 1.030 (1.008-1.030) Urine Protein 100 H (NEGATIVE) mg/dL Urine Glucose (UA) Negative (NEGATIVE) mg/dL Urine Ketones Negative (NEGATIVE) mg/dL Urine Occult Blood Moderate H (NEGATIVE) Urine Nitrite Negative (NEGATIVE) Urine Bilirubin Small H (NEGATIVE) Urine Urobilinogen 0.2 (0.2-1.0) EU/dL Ur Leukocyte Esterase Negative (NEGATIVE) Urine RBC 10-20 H (0-5) Urine WBC 0-5 (0-5) Ur Epithelial Cells Not seen Amorphous Sediment Few Urine Bacteria Few Urine Mucus Many Urine Other See note Meds: Medications Generic Name Dose Route Start Last Admin Trade Name Freq PRN Reason Stop Dose Admin Iopamidol 150 ml 05/16/21 12:20 05/16/21 12:49 Iopamidol 612 Mg/Ml 150 Ml Bottle IV 05/17/21 12:21 150 ml . DIRECTED PRN Administration RADIOLOGY EXAM Sodium Chloride 10 ml 05/16/21 10:24 05/16/21 10:40 Sodium Chloride 0.9% 10 Ml Syringe FLUSH 10 ml ASDIRECTED PRN Administration Keep Vein Open Discontinued Medications Generic Name Dose Route Start Last Admin Trade Name Freq PRN Reason Stop Dose Admin Hydromorphone HCl 0.5 mg 05/16/21 10:51 05/16/21 10:58 Hydromorphone 0.5 Mg/0.5 Ml Syringe IVPUSH 05/16/21 10:52 0.5 mg ONETIME ONE Administration Lactated Ringer's 1,000 mls @ 1,000 mls/hr 05/16/21 10:32 05/16/21 10:40 Ringers, Lactated IV 05/16/21 11:31 1,000 mls/hr BOLUS ONE Administration Sodium Chloride 100 mls @ 3 mls/sec 05/16/21 12:30 05/16/21 12:49 Normal Saline IV 05/16/21 12:31 3 mls/sec ASDIRECTED KATHERINE Administration Metoclopramide HCl 5 mg 05/16/21 10:42 05/16/21 10:48 Metoclopramide 10 Mg/2 Ml Sdv IVPUSH 05/16/21 10:43 5 mg ONETIME ONE Administration Sodium Chloride 10 ml 05/16/21 12:20 05/16/21 12:49 Sodium Chloride 0.9% 10 Ml Sdv FLUSH 05/16/21 12:21 10 ml ONETIME ONE Administration - Radiology Interpretation Free Text/Narrative:: CT abd/pelvis with contrast- IMPRESSION: 1. Prior ventral wall abdominal hernia repair when compared with 04/22/2021. 2. Postoperative fluid collection as above. This is of lower suspicion given the absence of peripheral rim enhancement or internal gas. If there is concern, this may be aspirated under imaging guidance. This fluid collection is seen best on image 113 of series 2. 3. Several loops of small bowel appear thick walled, with perienteric edema, and are adherent to the anterior abdominal wall. Adhesive disease is suspected. There is a gradual, rather than abrupt, caliber change within the small bowel. Consider Gastrografin challenge. 4. Mild right hydronephrosis and hydroureter, secondary to a 4 mm urolith on image 95, series 2. No significant delayed nephrogram or perinephric edema. Dictated by Edwin Mariano MD @ 05/16/2021 1:17:58 PM Please note that all CT scans at this facility use dose modulation, iterative reconstruction, and/or weight-based dosing when appropriate to reduce radiation dose to as low as reasonably achievable. Dictated by: Edwin Mariano MD @ 05/16/2021 13:18:09 CT Results Date: 05/16/21 CT Results Time: 13:20 Departure - Departure Time of Disposition: 14:00 Disposition: Home, Self-Care 01 Condition: Fair Clinical Impression: Postoperative generalized abdominal pain - Discharge Information *PRESCRIPTION DRUG MONITORING PROGRAM REVIEWED*: Not Applicable *COPY OF PRESCRIPTION DRUG MONITORING REPORT IN PATIENT STEPHANIE: Not Applicable Referrals: Raheem Arnold MD [Primary Care Provider] - Forms: ED Department Discharge Sepsis Event Note (ED) - Evaluation Sepsis Screening Result: No Definite Risk - Focused Exam Vital Signs: Vital Signs Temp Pulse Resp BP Pulse Ox 05/16/21 10:20 36.2 C 137 H 20 145/87 H 97 05/16/21 10:11 36.2 C 137 H 20 145/87 H 97 - My Orders Last 24 Hours: My Active Orders 05/16/21 10:24 Cardiac Monitoring [RC] .As Directed Sodium Chloride 0.9% [Saline Flush] 10 ml FLUSH ASDIRECTED PRN Saline Lock Insert [OM.PC] Routine 05/16/21 12:20 Iopamidol [Isovue-300 (61%)] 150 ml IV . DIRECTED PRN - Assessment/Plan Last 24 Hours: My Active Orders 05/16/21 10:24 Cardiac Monitoring [RC] .As Directed Sodium Chloride 0.9% [Saline Flush] 10 ml FLUSH ASDIRECTED PRN Saline Lock Insert [OM.PC] Routine 05/16/21 12:20 Iopamidol [Isovue-300 (61%)] 150 ml IV . DIRECTED PRN
[2021-05-16] MEDS ORDERED: Metoclopramide 10 MG/2 ML SDV IVPUSH ONE (10:42)
[2021-05-16] MEDS ORDERED: HYDROmorphone 0.5 MG/0.5 ML Syringe IVPUSH ONE (10:51)
[2021-05-16] MEDS ORDERED: Sodium Chloride 0.9% 10 ML SDV FLUSH ONE (12:20)
[2021-05-16] MEDS ORDERED: Iopamidol 612 MG/ML 150 ML Bottle IV PRN (12:20)
[2021-05-16] MEDS ORDERED: Sodium Chloride 0.9% 100 ML IV SCH (12:30)
--- NOTE | 2021-05-16 13:18 | CRLCT ---
For Patients: As a result of the 21st Century Cures Act, medical imaging exams and procedure reports are released immediately into your electronic medical record. You may view this report before your referring provider. If you have questions, please contact your health care provider. INDICATION: comparison from 2020 440 images (CRL read)today- 448 imagespost op abdominal pain HISTORY: Postoperative abdominal pain. COMPARISON: CT of the abdomen and pelvis, 04/22/2021. TECHNIQUE: CT of the abdomen and pelvis. Coronal/sagittal reconstruction images. 100 cc of Isovue-300 IV. FINDINGS: Lung bases: Bibasilar atelectasis. There is no pleural or pericardial effusion. There is no honeycomb formation. There is no traction bronchiectasis or basilar pneumothorax. Abdomen/pelvis: The liver morphology is non cirrhotic. There is no perihepatic ascites. No inflammatory changes adjacent to the gallbladder. No splenomegaly. No adrenal mass. There is no hydronephrosis. There is no solid renal mass. There is no perinephric fluid collection. There is no pancreatic mass or glandular atrophy. There is a right proximal urolith, which is seen best on image 95, series 2. This measures 4 mm. Mild right hydronephrosis and hydroureter, without a delayed nephrogram. No contralateral urolith. Urinary bladder and extraperitoneal space of [place] are normal. Anastomotic sutures present in the sigmoid. Colonic diverticulosis. No evidence for diverticulitis. Fluid-filled small bowel and colon. Several loops of small bowel appear adherent to the anterior abdominal wall. There is mild mural thickening and perienteric edema involving several loops of small bowel, seen best on image 85, series 2. The ventral wall abdominal hernia containing bowel has been repaired since previous. There is a fluid collection present without internal gas or peripheral enhancement, which measures 9.5 x 4.0 cm and transverse in AP dimensions. There are overlying skin laura, with fat stranding in the abdominal wall fat. The visceral artery branches are patent. There is no portal vein thrombosis. The splenic vein and SMV are patent. No inguinal or pelvic sidewall lymphadenopathy. The retroperitoneum and gastrohepatic ligament are normal. There is a sclerotic lesion present in the left sacral ala. This is stable from previous. This may be degenerative in nature. This measures 2 cm in dimension. There are degenerative changes at the endplates of the thoracolumbar spine. The vertebral body heights are maintained on sagittal reconstruction images. IMPRESSION: 1. Prior ventral wall abdominal hernia repair when compared with 04/22/2021. 2. Postoperative fluid collection as above. This is of lower suspicion given the absence of peripheral rim enhancement or internal gas. If there is concern, this may be aspirated under imaging guidance. This fluid collection is seen best on image 113 of series 2. 3. Several loops of small bowel appear thick walled, with perienteric edema, and are adherent to the anterior abdominal wall. Adhesive disease is suspected. There is a gradual, rather than abrupt, caliber change within the small bowel. Consider Gastrografin challenge. 4. Mild right hydronephrosis and hydroureter, secondary to a 4 mm urolith on image 95, series 2. No significant delayed nephrogram or perinephric edema. Dictated by Edwin Mariano MD @ 05/16/2021 1:17:58 PM Please note that all CT scans at this facility use dose modulation, iterative reconstruction, and/or weight-based dosing when appropriate to reduce radiation dose to as low as reasonably achievable. Dictated by: Edwin Mariano MD @ 05/16/2021 13:18:09 (Electronically Signed)
--- NOTE | 2021-05-16 15:00 | PCM.HP.2 ---
H&P History of Present Illness - General Date of Service: 05/16/21 Admit Problem/Dx: Admission Diagnosis/Problem Admission Diagnosis/Problem Pain Source of Information: Patient, Family, Provider, RN Notes Reviewed History Limitations: Reports: No Limitations - History of Present Illness Initial Comments - Free Text/Narative: Mr. Leon is a 60-year-old gentleman who was admitted through the emergency department with nausea, abdominal/flank pain secondary to a right ureteral calculus. He had undergone hernia repair with mesh 11 days ago and was recovering and feeling relatively well until today. He has developed symptoms of nausea with abdominal bloating abdominal pain and right flank pain. CRP and white blood cell count are elevated. CT scan of the abdomen and pelvis shows evidence of a right ureteral calculus. There are postoperative changes consistent with his recent hernia repair including some dilated bowel and an area of fluid collection that appears to be consistent with a seroma. He has had an elevated heart rate but it is improved with IV fluids and pain medication. Middle Abdomen Pain Score (Numeric/FACES): 5 - Related Data Allergies/Adverse Reactions: Allergies Allergy/AdvReac Type Severity Reaction Status Date / Time trazodone Allergy Intermediate Difficulty Verified 05/16/21 10:15 Breathing azathioprine Allergy Unknown Other Verified 05/16/21 10:15 sulfamethoxazole Allergy Unknown Cannot Verified 05/16/21 10:15 [From Bactrim] Remember trimethoprim [From Bactrim] Allergy Unknown Cannot Verified 05/16/21 10:15 Remember Home Medications: Home Meds Losartan [Cozaar] 50 mg PO DAILY 06/24/13 [History] Omeprazole 20 mg PO BEDTIME 06/24/13 [History] Spironolactone [Aldactone] 25 mg PO DAILY 01/01/17 [History] cycloSPORINE [Restasis] 1 drop EYEBOTH BID 05/01/21 [History] Fluorometholone [Fluorometholone 0.1% Ophth Susp] 1 drop EYEBOTH DAILY 05/05/21 [History] Tofacitinib Citrate [Xeljanz] 5 mg PO BID 05/05/21 [History] Acetaminophen [Tylenol] 650 mg PO Q4H PRN 05/14/21 [History] Cyclobenzaprine [Flexeril] 10 mg PO TID PRN 05/14/21 [History] Doxycycline [Doxycycline Hyclate] 100 mg PO BID 05/14/21 [History] Past Medical History HEENT History: Reports: None Cardiovascular History: Reports: Heart Murmur, Hypertension Respiratory History: Reports: Sleep Apnea Gastrointestinal History: Reports: GERD, Other (See Below) Other Gastrointestinal History: diverticultits Genitourinary History: Reports: Renal Calculus Musculoskeletal History: Reports: RA Neurological History: Reports: MS Endocrine/Metabolic History: Reports: Diabetes, Type II Other Endocrine/Metabolic History: BS 174 this am Immunologic History: Reports: Immunosuppression Dermatologic History: Reports: Other (See Below) Other Dermatologic History: roseatia - Infectious Disease History Infectious Disease History: Reports: C-Difficile, Chicken Pox - Past Surgical History Head Surgeries/Procedures: Reports: None HEENT Surgical History: Reports: Other (See Below) Other HEENT Surgeries/Procedures: 2 cornea transplants Cardiovascular Surgical History: Reports: None GI Surgical History: Reports: Colon, Colonoscopy, EGD, Hernia Repair/Other, Other (See Below) Other GI Surgeries/Procedures: colon resection Male Surgical History: Reports: Lithotripsy ([facility]) Endocrine Surgical History: Reports: None Neurological Surgical History: Reports: None Musculoskeletal Surgical History: Reports: None Social & Family History - Family History Family Medical History: No Pertinent Family History - Tobacco Use Tobacco Use Status *Q: Never Tobacco User - Caffeine Use Caffeine Use: Reports: Energy Drinks, Tea - Living Situation & Occupation Living situation: Reports: , 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 Denies: Constipation, Diarrhea, Difficulty Swallowing, Hematemesis, Hematochezia, Melena, Vomiting Genitourinary: Reports: Hematuria, Flank Pain. Denies: Dysuria, Frequency, Burning, Pain, Urgency Musculoskeletal: Reports: No Symptoms Skin: Reports: No Symptoms Psychiatric: Reports: No Symptoms Neurological: Reports: No Symptoms Hematologic/Lymphatic: Reports: No Symptoms Immunologic: Reports: No Symptoms Exam - Exam Exam: See Below - Vital Signs Vital Signs: Last Vital Signs Temp 97.1 F 05/16/21 10:20 Pulse 137 H 05/16/21 10:20 Resp 20 09/04/21 10:20 BP 145/87 H 05/16/21 10:20 Pulse Ox 97 05/16/21 10:20 Weight: 225 lb - Exam Quality Assessment: DVT Prophylaxis General: Alert, Oriented, Cooperative, Moderate Distress HEENT: Conjunctiva Clear, Hearing Intact, Mucosa Moist & [place], Normal Nasal Septum, Posterior Pharynx Clear, Pupils Equal Neck: Supple, Trachea Midline, +2 Carotid Pulse wo Bruit Lungs: Clear to Auscultation, Normal Respiratory Effort Cardiovascular: Regular Rhythm, Normal S1, Normal S2, Tachycardia. No: Systolic Murmur, Diastolic Murmur GI/Abdominal Exam: Soft, Non-Tender, No Organomegaly, No Distention Back Exam: Normal Inspection, CVA Tenderness (R). No: CVA Tenderness (L) Extremities: Non-Tender, No Pedal Edema Skin: Warm, Dry Neurological: Cranial Nerves Intact, Strength Equal Bilateral, Normal Speech, Normal Tone, Sensation Intact. No: Focal Deficit Neuro Extensive - Mental Status: Alert, Oriented x3, Normal Mood/Affect, Normal Cognition, Memory Intact - Patient Data Lab Results Last 24 hrs: Laboratory Results - last 24 hr 05/16/21 05/16/21 05/16/21 Range/Units 10:36 10:36 10:36 WBC 14.6 H (4.5-11.0) K/uL RBC 5.37 (4.30-5.90) M/uL Hgb 14.5 (12.0-15.0) g/dL Hct 44.5 (40.0-54.0) % MCV 83 (80-98) fL MCH 27 (27-31) pg MCHC 33 (32-36) % Plt Count 626 H (150-400) K/uL Sodium 134 L (140-148) mmol/L Potassium 4.3 (3.6-5.2) mmol/L Chloride 98 L (100-108) mmol/L Carbon Dioxide 23 (21-32) mmol/L Anion Gap 17.3 H (5.0-14.0) mmol/L BUN 15 (7-18) mg/dL Creatinine 1.1 (0.8-1.3) mg/dL Est Cr Clr Drug Dosing 63.64 mL/min Estimated GFR (MDRD) > 60 (>60) Glucose 206 H (74-106) mg/dL Lactic Acid 1.2 (0.4-2.0) mmol/L Calcium 9.9 (8.5-10.1) mg/dL C-Reactive Protein 5.96 H (0.0-0.3) mg/dL Urine Color (YELLOW) Urine Appearance (CLEAR) Urine pH (5.0-8.0) Ur Specific [place] (1.008-1.030) Urine Protein (NEGATIVE) mg/dL Urine Glucose (UA) (NEGATIVE) mg/dL Urine Ketones (NEGATIVE) mg/dL Urine Occult Blood (NEGATIVE) Urine Nitrite (NEGATIVE) Urine Bilirubin (NEGATIVE) Urine Urobilinogen (0.2-1.0) EU/dL Ur Leukocyte Esterase (NEGATIVE) Urine RBC (0-5) Urine WBC (0-5) Ur Epithelial Cells Amorphous Sediment Urine Bacteria Urine Mucus Urine Other 05/16/21 Range/Units 12:26 WBC (4.5-11.0) K/uL RBC (4.30-5.90) M/uL Hgb (12.0-15.0) g/dL Hct (40.0-54.0) % MCV (80-98) fL MCH (27-31) pg MCHC (32-36) % Plt Count (150-400) K/uL Sodium (140-148) mmol/L Potassium (3.6-5.2) mmol/L Chloride (100-108) mmol/L Carbon Dioxide (21-32) mmol/L Anion Gap (5.0-14.0) mmol/L BUN (7-18) mg/dL Creatinine (0.8-1.3) mg/dL Est Cr Clr Drug Dosing mL/min Estimated GFR (MDRD) (>60) Glucose (74-106) mg/dL Lactic Acid (0.4-2.0) mmol/L Calcium (8.5-10.1) mg/dL C-Reactive Protein (0.0-0.3) mg/dL Urine Color Yellow (YELLOW) Urine Appearance Slightly cloudy A (CLEAR) Urine pH 5.5 (5.0-8.0) Ur Specific [place] >= 1.030 (1.008-1.030) Urine Protein 100 H (NEGATIVE) mg/dL Urine Glucose (UA) Negative (NEGATIVE) mg/dL Urine Ketones Negative (NEGATIVE) mg/dL Urine Occult Blood Moderate H (NEGATIVE) Urine Nitrite Negative (NEGATIVE) Urine Bilirubin Small H (NEGATIVE) Urine Urobilinogen 0.2 (0.2-1.0) EU/dL Ur Leukocyte Esterase Negative (NEGATIVE) Urine RBC 10-20 H (0-5) Urine WBC 0-5 (0-5) Ur Epithelial Cells Not seen Amorphous Sediment Few Urine Bacteria Few Urine Mucus Many Urine Other See note Result Diagrams: 05/16/21 10:36 05/16/21 10:36 Sepsis Event Note - Evaluation Sepsis Screening Result: No Definite Risk - Focused Exam Vital Signs: Vital Signs Temp Pulse Resp BP Pulse Ox 05/16/21 10:20 97.1 F 137 H 20 145/87 H 97 05/16/21 10:11 97.1 F 137 H 20 145/87 H 97 *Q Meaningful Use (ADM) - VTE Risk Assess *Q Each Risk Factor Represents 1 Point: Obesity ( BMI > 25 kg/m2) Total Score 1 Point Risk Factors: 1 Each Risk Factor Represents 2 Points: Age 60 - 74 Years Total Score 2 Point Risk Factors: 2 Each Risk Factor Represents 3 Points: None Total Score 3 Point Risk Factors: 0 Each Risk Factor Represents 5 Points: None Total Score 5 Point Risk Factors: 0 Venous Thromboembolism Risk Factor Score *Q: 3 Problem List Initiated/Reviewed/Updated: Yes Orders Last 24hrs: Active Orders 24 hr Category Date Time Status Patient Status Manage Transfer [TRANSFER] Routine ADT 05/16/21 14:42 Ordered Cardiac Monitoring [RC] .As Directed Care 05/16/21 10:24 Active Iopamidol [Isovue-300 (61%)] Med 05/16/21 12:20 Active 150 ml IV . DIRECTED PRN Sodium Chloride 0.9% [Saline Flush] Med 05/16/21 10:24 Active 10 ml FLUSH ASDIRECTED PRN Saline Lock Insert [OM.PC] Routine Oth 05/16/21 10:24 Ordered Resuscitation Status Routine Resus Stat 05/16/21 14:46 Ordered Medication Orders Iopamidol (Iopamidol 612 Mg/Ml 150 Ml Bottle) 150 ml IV . DIRECTED PRN PRN Reason: RADIOLOGY EXAM Stop: 05/17/21 12:21 Last Admin: 05/16/21 12:49 Dose: 150 ml Documented by: STAYONATAN Sodium Chloride (Sodium Chloride 0.9% 10 Ml Syringe) 10 ml FLUSH ASDIRECTED PRN PRN Reason: Keep Vein Open Last Admin: 05/16/21 10:40 Dose: 10 ml Documented by: ARLET Assessment/Plan Comment:: ASSESSMENT AND PLAN RIGHT URETERAL CALCULUS-likely cause of sudden onset of symptoms today including pain and nausea. -IV fluids for hydration -Flomax 0.4 mg p.o. twice daily -Pain and nausea medication as needed SINUS TACHYCARDIA-likely secondary to dehydration and current pain -Cardiac monitoring -IV fluids for hydration STATUS POST ABDOMINAL WALL HERNIA REPAIR WITH MESH-no evidence of significant complications noted thus far TYPE 2 DIABETES MELLITUS-elevated blood sugar noted in the emergency department -Start Metformin 500 mg p.o. twice daily -4 times daily glucometers -Low-dose sliding scale Humalog MAINTENANCE ISSUES -DVT prophylaxis; Lovenox 40 mg subcu daily -GI prophylaxis; continue outpatient PPI therapy -Loza catheter; not indicated -Nutrition; full liquid diet -Nicotine dependence; not required CODE STATUS-FULL CODE ADMISSION STATUS-this patient will be admitted to observation status, expect no more than a one night hospital stay for evaluation and management of problems as outlined above. DISPOSITION-anticipate discharge to home after the hospital stay. PRIMARY CARE PROVIDER-Dr. Raheem Arnold - Mortality Measure Prognosis:: Good
[2021-05-16] MEDS ORDERED: Cyclobenzaprine 10 MG Tab PO PRN (15:44)
[2021-05-16] MEDS ORDERED: Polyethylene Glycol 3350 Powder 17 GM Packet PO PRN (15:44)
[2021-05-16] MEDS ORDERED: Ondansetron 4 MG/2 ML SDV IV PRN (15:44)
[2021-05-16] MEDS ORDERED: Glucose Gel 15 GM in 37.5 GM Tube PO PRN (15:44)
[2021-05-16] MEDS ORDERED: 50% Dextrose in Water 50 ML Syringe IV PRN (15:44)
[2021-05-16] MEDS ORDERED: Lactated Ringers 1,000 ML IV SCH (15:44)
[2021-05-16] MEDS ORDERED: Acetaminophen 325 MG Tab PO PRN (15:44)
[2021-05-16] MEDS ORDERED: oxyCODONE 5 MG Tab PO PRN (15:44)
[2021-05-16] MEDS: Enoxaparin 40 MG/0.4 ML Syringe SUBCUT SCH (16:45)
[2021-05-16] MEDS: Insulin Lispro 100 Unit/ML 3 ML KwikPen SUBCUT SCH ×2 (16:46→21:00)
[2021-05-16] MEDS: metFORMIN 500 MG Tab PO SCH (16:47)
[2021-05-16] MEDS: Tamsulosin 0.4 MG Cap.ER PO SCH (17:13)
[2021-05-16] MEDS: Lactated Ringers 1,000 ML IV SCH (18:56)
[2021-05-16] MEDS ORDERED: TOFACITINIB CITRATE 5 MG PO SCH (21:00)
[2021-05-16] MEDS ORDERED: Non-Formulary Medication 1 Each (Cyclosporine [Restasis] 1 EACH Each) EYEBOTH SCH (21:00)
[2021-05-16] MEDS ORDERED: Pantoprazole 40 MG Tab.CR PO SCH (21:00)
[2021-05-16] MEDS: Metoprolol Tartrate 25 MG Tab PO SCH (21:23)
[2021-05-16] MEDS: DOXYCYCLINE 100 MG PO SCH (21:25)
[2021-05-16] MEDS: XELJANZ 5 MG PO SCH (22:21)
[2021-05-16] MEDS ORDERED: Melatonin 3 MG Tab PO PRN (22:53)
[2021-05-17] MEDS: Metoprolol Tartrate 25 MG Tab PO SCH (01:44)
[2021-05-17] MEDS: Lactated Ringers 1,000 ML IV SCH (03:19)
[2021-05-17] MEDS ORDERED: Metoprolol Tartrate 25 MG Tab PO SCH ×2 (08:00→10:00)
[2021-05-17] MEDS: Insulin Lispro 100 Unit/ML 3 ML KwikPen SUBCUT SCH ×2 (08:40→12:54)
[2021-05-17] MEDS: Tamsulosin 0.4 MG Cap.ER PO SCH (08:41)
[2021-05-17] MEDS: metFORMIN 500 MG Tab PO SCH (08:41)
[2021-05-17] MEDS: Enoxaparin 40 MG/0.4 ML Syringe SUBCUT SCH (08:48)
[2021-05-17 08:51] VITALS: BP 141/79
[2021-05-17] MEDS: DOXYCYCLINE 100 MG PO SCH (08:59)
[2021-05-17] MEDS ORDERED: Spironolactone 25 MG Tab PO SCH (09:00)
[2021-05-17] MEDS ORDERED: Losartan 50 MG Tab PO SCH (09:00)
[2021-05-17] MEDS ORDERED: Lactobacillus Rhamnosus GG (Probiotic) Cap PO SCH (09:00)
[2021-05-17] MEDS ORDERED: Metoprolol Succinate 50 MG Tab.ER PO SCH (09:00)
[2021-05-17] MEDS ORDERED: Non-Formulary Medication 1 Each (Fluorometholone [Fluorometholone 0.1% Ophth Susp] 10 ML B EYEBOTH SCH (09:00)
[2021-05-17] MEDS: XELJANZ 5 MG PO SCH (09:01)
[2021-05-17 09:03] VITALS: PULSE 87
[2021-05-17] MEDS ORDERED: Hypromellose 0.3% Ophth Soln 15 ML Bottle EYEBOTH SCH (11:00)
[2021-05-17] MEDS ORDERED: Fluorometholone 0.1% Ophth Susp 5 ML Bottle EYEBOTH SCH (11:30)
--- NOTE | 2021-05-17 13:05 | PCM.DCSUM1 ---
Discharge Summary - Hospital Course Brief History: Mr. Leon is a 60-year-old gentleman who was admitted through the emergency department observation status for management of abdominal/flank pain and nausea secondary to a right ureteral calculus. - Discharge Data Discharge Date: 05/17/21 Discharge Disposition: Home, Self-Care 01 Condition: Stable - Referral to Home Health Primary Care Physician: Raheem Arnold MD - Discharge Diagnosis/Problem(s) (1) Paroxysmal SVT (supraventricular tachycardia) SNOMED Code(s): 12323652 ICD Code: I47.1 - SUPRAVENTRICULAR TACHYCARDIA Status: Acute Current Visit: Yes (2) Right ureteral calculus SNOMED Code(s): 11956875 ICD Code: N20.1 - CALCULUS OF URETER Status: Acute Current Visit: Yes (3) Postoperative generalized abdominal pain SNOMED Code(s): 099999636 ICD Code: G89.18 - OTHER ACUTE POSTPROCEDURAL PAIN; R10.84 - GENERALIZED ABDOMINAL PAIN Status: Acute Current Visit: Yes - Patient Summary/Data Hospital Course: Mr. Leon is a 60-year-old gentleman who was admitted through the emergency department with nausea, abdominal/flank pain secondary to a right ureteral calculus. He had undergone hernia repair with mesh 11 days ago and was recovering and feeling relatively well until the day of admission. He has developed symptoms of nausea with abdominal bloating abdominal pain and right flank pain. CRP and white blood cell count are elevated. CT scan of the abdomen and pelvis shows evidence of a right ureteral calculus. There are postoperative changes consistent with his recent hernia repair including some dilated bowel and an area of fluid collection that appears to be consistent with a seroma. He has had an elevated heart rate but it is improved with IV fluids and pain control. On admission he was started on Flomax twice daily and given IV fluids for hydration. In addition he was provided pain and nausea medication as needed. He was found to have episodes of paroxysmal quintin reentrant tachyc ardia after admission and was started on beta-kedar therapy with metoprolol. Metoprolol worked well and he had no further episodes of the tachycardia. During hospitalization there was no evidence of significant temperature elevation or underlying infection. He was feeling well on the day of discharge and tolerated a regular diet at breakfast and noon. He will be discharged home, activity will be as tolerated and he will resume a regular diet. During hospital stay blood sugars were elevated and he was started on Metformin 500 mg twice daily, this will be continued after discharge. He will remain on the Flomax for an additional week. Follow-up appointment will be scheduled with Dr. Jackson as well as with his primary care provider. - Patient Instructions Diet: Usual Diet as Tolerated Activity: As Tolerated Other/Special Instructions: Please schedule follow-up appointment with primary care provider within 1 week - Discharge Plan *PRESCRIPTION DRUG MONITORING PROGRAM REVIEWED*: Not Applicable *COPY OF PRESCRIPTION DRUG MONITORING REPORT IN PATIENT STEPHANIE: Not Applicable Prescriptions/Med Rec: Tamsulosin [Flomax] 0.4 mg PO BIDPC #14 cap.er metFORMIN [Glucophage] 500 mg PO BIDMEALS #60 tablet Metoprolol Succinate 50 mg PO DAILY #30 tab.er.24h Home Medications: Home Meds Losartan [Cozaar] 50 mg PO DAILY 06/24/13 [History] Omeprazole 20 mg PO BEDTIME 06/24/13 [History] Spironolactone [Aldactone] 25 mg PO DAILY 01/01/17 [History] cycloSPORINE [Restasis] 1 drop EYEBOTH BID 05/01/21 [History] Fluorometholone [Fluorometholone 0.1% Ophth Susp] 1 drop EYEBOTH DAILY 05/05/21 [History] Tofacitinib Citrate [Xeljanz] 5 mg PO BID 05/05/21 [History] Acetaminophen [Tylenol] 650 mg PO Q4H PRN 05/14/21 [History] Cyclobenzaprine [Flexeril] 10 mg PO TID PRN 05/14/21 [History] Doxycycline [Vibramycin] 100 mg PO BID 05/14/21 [History] Melatonin 5 mg PO BEDTIME 05/16/21 [History] Metoprolol Succinate 50 mg PO DAILY #30 tab.er.24h 05/17/21 [Rx] Tamsulosin [Flomax] 0.4 mg PO BIDPC #14 cap.er 05/17/21 [Rx] metFORMIN [Glucophage] 500 mg PO BIDMEALS #60 tablet 05/17/21 [Rx] Referrals: Raheem Arnold MD [Primary Care Provider] - Amanda Su PA-C [Physician Compensation Programs Manager] - 05/20/21 - Discharge Summary/Plan Comment DC Time >30 min.: No Total # of Minutes for Discharge Time: 15 - Patient Data Vitals - Most Recent: Last Vital Signs Temp 95.6 F L 05/17/21 08:46 Pulse 87 05/17/21 09:02 Resp 18 05/17/21 08:46 BP 141/79 H 05/17/21 09:02 Pulse Ox 95 05/17/21 08:46 Weight - Most Recent: 228 lb 9.91 oz I&O - Last 24 hours: Intake & Output 05/16/21 05/17/21 05/17/21 22:59 06:59 14:59 Intake Total 590 2202 300 Output Total 500 300 Balance 590 1702 0 Lab Results - Last 24 hrs: Laboratory Results - last 24 hr 05/16/21 05/16/21 05/17/21 Range/Units 16:45 20:55 04:35 WBC 13.1 H (4.5-11.0) K/uL RBC 4.38 (4.30-5.90) M/uL Hgb 12.2 D (12.0-15.0) g/dL Hct 37.3 L (40.0-54.0) % MCV 85 (80-98) fL MCH 28 (27-31) pg MCHC 33 (32-36) % Plt Count 543 H (150-400) K/uL Neut % (Auto) 67.7 H (36-66) % Lymph % (Auto) 17.9 L (24-44) % [place] % (Auto) 7.1 H (2-6) % Eos % (Auto) 6.8 H (2-4) % Baso % (Auto) 0.5 (0-1) % Sodium (140-148) mmol/L Potassium (3.6-5.2) mmol/L Chloride (100-108) mmol/L Carbon Dioxide (21-32) mmol/L Anion Gap (5.0-14.0) mmol/L BUN (7-18) mg/dL Creatinine (0.8-1.3) mg/dL Est Cr Clr Drug Dosing mL/min Estimated GFR (MDRD) (>60) Glucose (74-106) mg/dL POC Glucose 138 H 137 H (74-106) mg/dL Calcium (8.5-10.1) mg/dL 05/17/21 05/17/21 05/17/21 Range/Units 04:35 07:25 11:26 WBC (4.5-11.0) K/uL RBC (4.30-5.90) M/uL Hgb (12.0-15.0) g/dL Hct (40.0-54.0) % MCV (80-98) fL MCH (27-31) pg MCHC (32-36) % Plt Count (150-400) K/uL Neut % (Auto) (36-66) % Lymph % (Auto) (24-44) % [place] % (Auto) (2-6) % Eos % (Auto) (2-4) % Baso % (Auto) (0-1) % Sodium 136 L (140-148) mmol/L Potassium 4.3 (3.6-5.2) mmol/L Chloride 101 (100-108) mmol/L Carbon Dioxide 27 (21-32) mmol/L Anion Gap 12.3 (5.0-14.0) mmol/L BUN 13 (7-18) mg/dL Creatinine 1.0 (0.8-1.3) mg/dL Est Cr Clr Drug Dosing 70.00 mL/min Estimated GFR (MDRD) > 60 (>60) Glucose 145 H (74-106) mg/dL POC Glucose 130 H 131 H (74-106) mg/dL Calcium 8.9 (8.5-10.1) mg/dL Med Orders - Current: Current Medications Acetaminophen (Acetaminophen 325 Mg Tab) 650 mg PO Q4H PRN PRN Reason: Abdominal Pain Artificial Tears (Hypromellose 0.3% Ophth Soln 15 Ml Bottle) 0 ml EYEBOTH BID KATHERINE Cyclobenzaprine HCl (Cyclobenzaprine 10 Mg Tab) 10 mg PO TID PRN PRN Reason: Muscle Spasm - Painful Dextrose (Glucose Gel 15 Gm In 37.5 Gm Tube) 15 gm PO ONETIME PRN PRN Reason: Hypoglycemia Dextrose/Water (50% Dextrose In Water 50 Ml Syringe) 50 ml IV ONETIME PRN PRN Reason: Hypoglycemia Doxycycline Hyclate (Doxycycline 100 Mg Cap) 100 mg PO BID [facility] Enoxaparin Sodium (Enoxaparin 40 Mg/0.4 Ml Syringe) 40 mg SUBCUT DAILY [facility] Last Admin: 05/17/21 08:48 Dose: 40 mg Documented by: Fluorometholone (Fluorometholone 0.1% Ophth Susp 5 Ml Bottle) 0 ml EYEBOTH DAILY [facility] Lactated Ringer's (Ringers, Lactated) 1,000 mls @ 125 mls/hr IV ASDIRECTED [facility] Last Admin: 05/17/21 03:19 Dose: 125 mls/hr Documented by: Insulin Human Lispro (Insulin Lispro 100 Unit/Ml 3 Ml Kwikpen) 0 unit SUBCUT QIDACANDBED [facility]; Protocol Last Admin: 05/17/21 12:54 Dose: Not Given Documented by: Lactobacillus Rhamnosus (Lactobacillus Rhamnosus Gg (Probiotic) Cap) 2 cap PO BID [facility] Last Admin: 05/17/21 09:02 Dose: 2 cap Documented by: Losartan Potassium (Losartan 50 Mg Tab) 50 mg PO DAILY [facility] Last Admin: 05/17/21 08:48 Dose: 50 mg Documented by: Melatonin (Melatonin 3 Mg Tab) 6 mg PO BEDTIME PRN PRN Reason: Insomnia Last Admin: 05/16/21 23:21 Dose: 6 mg Documented by: Metformin HCl (Metformin 500 Mg Tab) 500 mg PO BIDMEALS [facility] Last Admin: 05/17/21 08:41 Dose: Not Given Documented by: Metoprolol Succinate (Metoprolol Succinate 50 Mg Tab.Er) 50 mg PO DAILY [facility] Last Admin: 05/17/21 09:02 Dose: 50 mg Documented by: Ondansetron HCl (Ondansetron 4 Mg/2 Ml Sdv) 4 mg IV Q4H PRN PRN Reason: Nausea/Vomiting Oxycodone HCl (Oxycodone 5 Mg Tab) 5 mg PO Q4H PRN PRN Reason: Pain (moderate 4-6) Pantoprazole Sodium (Pantoprazole 40 Mg Tab.Cr) 40 mg PO BEDTIME [facility] Last Admin: 05/16/21 21:23 Dose: 40 mg Documented by: Patient's Own MedicationXeljanz 5 Mg Tab 1 each PO BID [facility] Last Admin: 05/17/21 09:01 Dose: 1 each Documented by: Polyethylene Glycol (Polyethylene Glycol 3350 Powder 17 Gm Packet) 17 gm PO DAILY PRN PRN Reason: Constipation Sodium Chloride (Sodium Chloride 0.9% 10 Ml Syringe) 10 ml FLUSH ASDIRECTED PRN PRN Reason: Keep Vein Open Spironolactone (Spironolactone 25 Mg Tab) 25 mg PO DAILY [facility] Last Admin: 05/17/21 08:45 Dose: 25 mg Documented by: Tamsulosin HCl ([facility]ulosin 0.4 Mg Cap.Er) [facility] Last Admin: 05/17/21 08:41 Dose: 0.4 mg Documented by: Discontinued Medications Doxycycline Hyclate (Doxycycline 100 Mg Cap Own Med ) 100 mg PO BID [facility] Stop: 05/17/21 11:00 Last Admin: 05/17/21 08:59 Dose: 100 mg Documented by: Hydromorphone HCl (Hydromorphone 0.5 Mg/0.5 Ml Syringe) 0.5 mg IVPUSH ONETIME ONE Stop: 05/16/21 10:52 Last Admin: 05/16/21 10:58 Dose: 0.5 mg Documented by: Lactated Ringer's (Ringers, Lactated) 1,000 mls @ 1,000 mls/hr IV BOLUS ONE Stop: 05/16/21 11:31 Last Admin: 05/16/21 10:40 Dose: 1,000 mls/hr Documented by: Sodium Chloride (Normal Saline) 100 mls @ 3 mls/sec IV ASDIRECTED [facility] Stop: 05/16/21 12:31 Last Admin: 05/16/21 12:49 Dose: 3 mls/sec Documented by: Lactated Ringer's (Ringers, Lactated) 1,000 mls @ 500 mls/hr IV ASDIRECTED [facility] Stop: 05/16/21 19:45 Last Admin: 05/16/21 16:45 Dose: 500 mls/hr Documented by: Iopamidol (Iopamidol 612 Mg/Ml 150 Ml Bottle) 150 ml IV . DIRECTED PRN PRN Reason: RADIOLOGY EXAM Stop: 05/17/21 12:21 Last Admin: 05/16/21 12:49 Dose: 150 ml Documented by: Metoclopramide HCl (Metoclopramide 10 Mg/2 Ml Sdv) 5 mg IVPUSH ONETIME ONE Stop: 05/16/21 10:43 Last Admin: 05/16/21 10:48 Dose: 5 mg Documented by: Metoprolol Tartrate (Metoprolol Tartrate 25 Mg Tab) 12.5 mg PO Q6H [facility] Last Admin: 05/17/21 01:44 Dose: 12.5 mg Documented by: Metoprolol Tartrate (Metoprolol Tartrate 25 Mg Tab) 12.5 mg PO Q6H KATHERINE Last Admin: 05/17/21 08:52 Dose: Not Given Documented by: Sodium Chloride (Sodium Chloride 0.9% 10 Ml Syringe) 10 ml FLUSH ASDIRECTED PRN PRN Reason: Keep Vein Open Last Admin: 05/16/21 10:40 Dose: 10 ml Documented by: Sodium Chloride (Sodium Chloride 0.9% 10 Ml Sdv) 10 ml FLUSH ONETIME ONE Stop: 05/16/21 12:21 Last Admin: 05/16/21 12:49 Dose: 10 ml Documented by: - Exam General: Reports: Alert, Oriented, Cooperative, No Acute Distress Lungs: Reports: Clear to Auscultation, Normal Respiratory Effort Cardiovascular: Reports: Regular Rate, Regular Rhythm, No Murmurs GI/Abdominal Exam: Soft, No Organomegaly, Tender. No: Distended, Guarding, Rigid, Rebound Extremities: Non-Tender, No Pedal Edema
[2021-05-17] MEDS ORDERED: Doxycycline 100 MG Cap PO SCH (21:00)
--- NOTE | 2021-05-19 13:37 | PN ---
DATE OF SERVICE: 05/17/2021 The patient was admitted with abdominal pain. He is 12 days status post a complex repair of recurrent hernia, which required some bowel resection as such. Came in with abdominal pain. CT scan had multiple findings, but all of which would be consistent with postoperatively at this point. He has been somewhat tachycardic with activity primarily. The CT finding also was consistent with a kidney stone, and the patient was admitted per Dr. Harvey's clinical impression that of a kidney stone as well. His abdomen this morning was very soft and nontender. There is some redness around the laura. We will remove those, and otherwise, he is having some frequent loose bowel movements and has had recently some antibiotics, so we will get him a stool Clostridium difficile and enterotoxin culture and add some probiotics. The patient otherwise per Dr. Harvey. He should follow up with Dr. Jackson in [facility]] this Tuesday as already arranged. Sagar Jackson MD /[id number]
--- NOTE | 2021-05-19 18:29 | PCM.EKG ---
#1 Interpretation EKG Date: 05/16/21 Time: 18:18 Rhythm: NSR Rate (Beats/Min): 93 Garita: Normal P-Wave: Present QRS: Normal ST-T: Normal QT: Normal VA/PQ Interval: normal Comparison: NA - No Prior EKG EKG Interpretation Comments: poor R wave progression One PVC multiple PAC's
== END 2021-05-17 13:30 | disposition home or self-care (01) ==
LOC: JP.ED 10:01 → JP.MS 14:42
PROVIDERS: ADMIT Hospitalist; ATTEND Hospitalist
DX: N20.1 Calculus of ureter (principal); I47.1 Supraventricular tachycardia; G89.18 Other acute postprocedural pain; R10.84 Generalized abdominal pain; E11.9 Type 2 diabetes mellitus without complications
CPT/HCPCS: 36415; 74177; 80048; 81001; 82947; 83605; 85025; 85027; 86140; 93005; 96372; 96374; 96375; 99285; A9270; G0378; J1170; J1650; J2765; J7120; Q9967; J1815

== ENCOUNTER 2021-06-06 07:18 | Emergency (ER) | payer MEDICAID ==
[2021-06-06] MEDS ORDERED: Ketorolac 30 MG/ML SDV IM ONE (07:20)
[2021-06-06] MEDS ORDERED: HYDROmorphone 1 MG/ML Syringe IM ONE (08:03)
--- NOTE | 2021-06-06 08:03 | EDM.PDOC ---
ED HPI GENERAL MEDICAL PROBLEM - General Chief Complaint: Genitourinary Problem Stated Complaint: POSSIBLE KIDNEY STONE Time Seen by Provider: 06/06/21 07:42 Source of Information: Reports: Patient, Family, Old Records, RN Notes Reviewed History Limitations: Reports: No Limitations - History of Present Illness INITIAL COMMENTS - FREE TEXT/NARRATIVE: 60-year-old gentleman presents emergency department day complaint of right flank pain, he has a known history of nephrolithiasis there was a 4 mm stone proximal ureter on 16 May. He states his been doing fine all of a sudden this morning's increasing amount of pain sudden onset did receive a dose of Toradol upon arrival in the emergency department states he feels significantly better. Has no nausea vomiting no fevers no shortness of breath Right Flank Pain Score (Numeric/FACES): 6 - Related Data Allergies Allergy/AdvReac Type Severity Reaction Status Date / Time trazodone Allergy Intermediate Difficulty Verified 06/06/21 07:29 Breathing azathioprine Allergy Unknown Other Verified 06/06/21 07:29 sulfamethoxazole Allergy Unknown Cannot Verified 06/06/21 07:29 [From Bactrim] Remember trimethoprim [From Bactrim] Allergy Unknown Cannot Verified 06/06/21 07:29 Remember Home Meds: Home Meds Losartan [Cozaar] 50 mg PO DAILY 06/24/13 [History] Omeprazole 20 mg PO BEDTIME 06/24/13 [History] Spironolactone [Aldactone] 25 mg PO DAILY 01/01/17 [History] cycloSPORINE [Restasis] 1 drop EYEBOTH BID 05/01/21 [History] Fluorometholone [Fluorometholone 0.1% Ophth Susp] 1 drop EYEBOTH DAILY 05/05/21 [History] Tofacitinib Citrate [Xeljanz] 5 mg PO BID 05/05/21 [History] Acetaminophen [Tylenol] 650 mg PO Q4H PRN 05/14/21 [History] Cyclobenzaprine [Flexeril] 10 mg PO TID PRN 05/14/21 [History] Doxycycline [Vibramycin] 100 mg PO BID 05/14/21 [History] Melatonin 5 mg PO BEDTIME 05/16/21 [History] Metoprolol Succinate 50 mg PO DAILY #30 tab.er.24h 05/17/21 [Rx] Tamsulosin [Flomax] 0.4 mg PO BIDPC #14 cap.er 05/17/21 [Rx] metFORMIN [Glucophage] 500 mg PO BIDMEALS #60 tablet 05/17/21 [Rx] Levofloxacin 500 mg PO DAILY 06/06/21 [History] Past Medical History HEENT History: Reports: None Cardiovascular History: Reports: Heart Murmur, Hypertension Respiratory History: Reports: Sleep Apnea Gastrointestinal History: Reports: GERD, Other (See Below) Other Gastrointestinal History: diverticultits Genitourinary History: Reports: Renal Calculus Musculoskeletal History: Reports: RA Neurological History: Reports: MS Endocrine/Metabolic History: Reports: Diabetes, Type II Other Endocrine/Metabolic History: BS 174 this am Immunologic History: Reports: Immunosuppression Dermatologic History: Reports: Other (See Below) Other Dermatologic History: roseatia - Infectious Disease History Infectious Disease History: Reports: C-Difficile, Chicken Pox - Past Surgical History Head Surgeries/Procedures: Reports: None HEENT Surgical History: Reports: Other (See Below) Other HEENT Surgeries/Procedures: 2 cornea transplants Cardiovascular Surgical History: Reports: None GI Surgical History: Reports: Colon, Colonoscopy, EGD, Hernia Repair/Other, Other (See Below) Other GI Surgeries/Procedures: colon resection Male Surgical History: Reports: Lithotripsy ([facility]) Endocrine Surgical History: Reports: None Neurological Surgical History: Reports: None Musculoskeletal Surgical History: Reports: None Social & Family History - Family History Family Medical History: No Pertinent Family History - Tobacco Use Tobacco Use Status *Q: Never Tobacco User - Caffeine Use Caffeine Use: Reports: Energy Drinks Other Caffeine Use: Once a day - Recreational Drug Use Recreational Drug Use: No - Living Situation & Occupation Living situation: Reports: , with Family (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 Denies: Nausea, Vomiting : Reports: Flank Pain ED EXAM, RENAL/ - Physical Exam Exam: See Below Exam Limited By: No Limitations General Appearance: Alert, WD/WN, No Apparent Distress Respiratory/Chest: No Respiratory Distress GI/Abdominal: Soft, Non-Tender Back Exam: Normal Inspection, Full Range of Motion. No: CVA Tenderness (R), CVA Tenderness (L) Course - Vital Signs Last Recorded V/S: Last Vital Signs Temp 97.3 F 06/06/21 07:20 Pulse 7 L 06/06/21 07:20 Resp 20 06/06/21 07:20 BP 196/95 H 06/06/21 07:20 Pulse Ox 100 06/06/21 07:20 - Orders/Labs/Meds Meds: Medications Discontinued Medications Generic Name Dose Route Start Last Admin Trade Name Katie PRN Reason Stop Dose Admin Ketorolac Tromethamine 30 mg 06/06/21 07:20 06/06/21 07:27 Ketorolac 30 Mg/Ml Sdv IM 06/06/21 07:21 30 mg ONETIME ONE Administration Departure - Departure Time of Disposition: 08:02 Disposition: Home, Self-Care 01 Condition: Fair Clinical Impression: Nephrolithiasis - Discharge Information Instructions: Kidney Stones, [id number] Referrals: Raheem Arnold MD [Primary Care Provider] - Additional Instructions: Use Toradol for baseline pain control, use hydrocodone for breakthrough pain, please followup with your primary care provider in 3-5 days if not better, plea se call return to the emergency department with worsening of symptoms. Sepsis Event Note (ED) - Focused Exam Vital Signs: Vital Signs Temp Pulse Resp BP Pulse Ox 06/06/21 07:20 97.3 F 7 L 20 196/95 H 100 - Assessment/Plan Plan: Assessment Acuity = acute Site and laterality = nephrolithiasis 4 mm right side Etiology = unknown Manifestations = flank pain Location of injury = Home Lab values = none Plan Did discuss options elected to treat empirically prescription for Toradol 10 mg 1 tab p.o. every 4-6 hours as needed total #20 as well as hydrocodone 5/325 1 tablet p.o. every 4-6 hours total #10 and follow-up with his primary care in 3 to 5 days if no improvement This note was dictated using [employer] recognition software please call with any questions on syntax or grammar.
[2021-06-06 08:22] VITALS: BP 147/90; PULSE 71
== END 2021-06-06 08:31 | disposition home or self-care (01) ==
LOC: JP.ED 07:18
DX: N20.0 Calculus of kidney (principal); I10 Essential (primary) hypertension; K21.9 Gastro-esophageal reflux disease without esophagitis; M06.9 Rheumatoid arthritis, unspecified; E11.9 Type 2 diabetes mellitus without complications; Z88.5 Allergy status to narcotic agent; Z88.2 Allergy status to sulfonamides; Z88.8 Allergy status to other drugs, medicaments and biological substances; Z79.899 Other long term (current) drug therapy; Z79.84 Long term (current) use of oral hypoglycemic drugs
CPT/HCPCS: 96372; 99283; J1170; J1885

== ENCOUNTER 2024-08-31 09:58 | Day surgery (SDC) | payer MEDICAID ==
[2024-08-31] MEDS ORDERED: Propofol 200 MG/20 ML SDV ONE (10:04)
[2024-08-31] MEDS ORDERED: fentaNYL 50 MCG/ML SDV ONE (10:04)
[2024-08-31] MEDS ORDERED: Midazolam 1 MG/ML 2 ML SDV ONE (10:04)
[2024-08-31] MEDS: Lactated Ringers 1,000 ML IV SCH (10:33)
[2024-08-31 12:12] VITALS: BP 127/61; PULSE 77
== END 2024-08-31 12:20 | disposition home or self-care (01) ==
LOC: JP.SDS 09:58
PROVIDERS: ATTEND Surgery
DX: K64.9 Unspecified hemorrhoids (principal); K57.31 Diverticulosis of large intestine without perforation or abscess with bleeding; I10 Essential (primary) hypertension; E11.9 Type 2 diabetes mellitus without complications; E66.9 Obesity, unspecified
CPT/HCPCS: 45398; J2250; J2704; J3010; J7120

== ENCOUNTER 2025-06-01 21:56 | Emergency (ER) | payer MEDICARE, BC ==
[2025-06-01 23:03] LABS: BASOPHILS ABSOLUTE AUTO 0.06 K/uL (0.00-0.10); BASOPHILS PERCENT AUTO 0.5 % (0.1-1.3); EOSINOPHILS ABSOLUTE AUTO 0.34 K/uL (0.00-0.40); EOSINOPHILS PERCENT AUTO 2.8 % (0.0-5.4); IMMATURE GRAN ABSOLUTE AUTO 0.08 K/uL (0.00-0.23); IMMATURE GRAN PERCENT AUTO 0.7 % (0.0-0.7); LYMPHOCYTES ABSOLUTE AUTO 2.41 K/uL (0.8-3.3); LYMPHOCYTES PERCENT AUTO 19.9 % (11.4-47.7); MONOCYTES ABSOLUTE AUTO 0.75 K/uL (0.20-0.90); MONOCYTES PERCENT AUTO 6.2 % (3.3-12.6); NEUTROPHILS ABSOLUTE AUTO 8.50 K/uL (1.0-7.6); NEUTROPHILS PERCENT AUTO 69.9 % (40.0-78.1); PLATELET COUNT,PLT 299 K/uL (130-375); RED BLOOD CELL COUNT 5.35 M/uL (4.14-5.76); WHITE BLOOD CELL COUNT,WBC 12.1 K/uL (3.2-11.0)
[2025-06-01 23:24] LABS: A/G RATIO 1.5 (1.2-2.2); ALANINE AMINOTRANSFERASE,ALT 37 U/L (12-78); ASPARTATE AMNIOTRANSFERASE,AST 16 U/L (15-37); BILIRUBIN TOTAL 0.6 mg/dL (0.2-1.0); BLOOD UREA NITROGEN,BUN 16 mg/dL (7-18); CARBON DIOXIDE,CO2 28 mmol/L (21-32); CHLORIDE,CL 105 mmol/L (100-108); CREATININE 0.8 mg/dL (0.8-1.3); EST CRCL DRUG DOSING (CG) 83.07 mL/min; ESTIMATED GFR 98 mL/min (>60); GLUCOSE RANDOM 128 mg/dL (74-106); POTASSIUM,K 4.3 mmol/L (3.6-5.2); PROTEIN TOTAL,TP 7.3 g/dL (6.4-8.2); SODIUM,NA 143 mmol/L (140-148)
[2025-06-01 23:29] LABS: LACTIC ACID 0.8 mmol/L (0.4-2.0)
[2025-06-01 23:56] VITALS: BP 125/74; PULSE 69
== END 2025-06-01 23:55 | disposition home or self-care (01) ==
LOC: JP.ED 21:56
DX: R10.9 Unspecified abdominal pain (principal); I48.91 Unspecified atrial fibrillation; E78.00 Pure hypercholesterolemia, unspecified; I10 Essential (primary) hypertension; K21.9 Gastro-esophageal reflux disease without esophagitis; E11.9 Type 2 diabetes mellitus without complications; Z86.16 Personal history of COVID-19; Z88.8 Allergy status to other drugs, medicaments and biological substances; Z88.2 Allergy status to sulfonamides; Z79.01 Long term (current) use of anticoagulants; Z79.899 Other long term (current) drug therapy
CPT/HCPCS: 36415; 80053; 83605; 83690; 85025; 86140; 99284